=== PATIENT | male | born 1950 | race Caucasian/White ===

== ENCOUNTER → 2017-03-01 | Outpatient (CLI) | payer MEDICARE, OTHER ==
--- NOTE | 2017-03-01 21:25 | MR ---
EXAMINATION TYPE: MR iac wo/w con DATE OF EXAM: 03/01/2017 9:17 PM COMPARISON: NONE HISTORY: Left-sided hearing loss CONTRAST: 20 mL MultiHance TECHNIQUE: T1-weighted sagittal, diffusion, T2, and FLAIR axial views of the brain are submitted. The high-reso lution T2 axial and postcontrast T1 axial and coronal views of the IACs are submitted. FINDINGS: There is no pathologic enhancement of the seventh and eighth cranial nerve complex. There is no acou stic neuroma. There are changes of chronic sinusitis. Mild generalized degenerative change. Craniocervical junction maintained. Sella turcica has a normal appearance. There is a prominent cisterna magna. Mastoid air cells have a normal appearance. Nasopharynx symmetric. Intraorbital structures have a nor mal appearance. Changes of chronic sinusitis noted. There are mild nonspecific focal areas of abnormal signal the white matter likely in the basis of rem ote microvascular ischemia. IMPRESSION: 1. No cerebellopontine angle mass or acoustic schwannoma.
== END | disposition home or self-care (01) ==
LOC: RADMRIMAIN 20:02
PROVIDERS: ATTEND Otolaryngology
DX: H93.19 Tinnitus, unspecified ear (principal); H91.90 Unspecified hearing loss, unspecified ear
CPT/HCPCS: 70553; A9577

== ENCOUNTER → 2017-03-04 | Outpatient (CLI) | payer MEDICARE, OTHER ==
--- NOTE | 2017-03-04 16:05 | CT ---
EXAMINATION TYPE: CT chest wo con DATE OF EXAM: 03/04/2017 3:49 PM COMPARISON: NONE HISTORY: Pt states of chest congestion/dyspnea x1 year. CT DLP: [address] of the chest was performed with lung and mediastinal window settings submitted. The la ck of contrast limits evaluation of the vascular, mediastinal and parenchymal structures including th e upper abdomen. LUNGS: The lungs are clear and free of infiltrate. No atelectasis. No pulmonary nodule or mass is de tected. No pleural effusion. No CT evidence of interstitial lung disease. MEDIASTINUM/ISAAC: Thoracic aorta is of normal caliber with limited evaluation given lack of contrast . The heart is not enlarged. Multiple enlarged prevascular space lymph node seen measuring up to 1.7 cm short axis. Right paratracheal lymph node mass measures 3.0 cm. Subcarinal adenopathy measures 2. 5 cm. Left tracheobronchial adenopathy measures 1.6 cm. There is AP window adenopathy measuring 1.3 c m. Left hilar adenopathy estimated at 1.6 cm. Suspect right hilar adenopathy 1.1 cm. UPPER ABDOMEN: There is evidence of periportal adenopathy measuring up to 1.7 cm. Large calculus righ t kidney measures 1.1 cm. Calcified left adrenal nodule measures 1.8 cm and is nonspecific and could reflect adenoma or area of remote hemorrhage. Gastrohepatic ligament lymph node measures 1.4 cm. Smal l sliding-type hiatal hernia. Right epiphrenic lymph nodes measure up to 9 mm. OTHER: No significant other abnormality. IMPRESSION: 1. No abnormality of the lungs appreciated. 2. There is evidence of mediastinal and probable hilar adenopathy. Additional adenopathy involving th e periportal region and gastrohepatic ligament. Lymphoma not excluded.
[2017-03-05 15:31] LABS: C-ANCA <1:20 Titer (<1:20); P-ANCA <1:20 Titer (<1:20)
[2017-03-08 16:59] LABS: Histoplasma Abs by ID None Detected (None Detected); Histoplasma Abs by Mycelia, CF <1:8 (<1:8)
== END | disposition home or self-care (01) ==
LOC: LABWHC1 14:35
PROVIDERS: ATTEND Internal Medicine Critical Care Medicine
DX: R06.00 Dyspnea, unspecified (principal); R59.1 Generalized enlarged lymph nodes
CPT/HCPCS: 36415; 71250; 82164; 85652; 86038; 86235; 86255; 86431; 86698; 87385

== ENCOUNTER → 2017-03-29 | Outpatient (CLI) | payer MEDICARE, OTHER ==
[2017-03-29 09:48] LABS: CH 30.6; CHCM 34.9; HCT 43.1 % (39.0-53.0); HDW 2.66; HGB 14.6 gm/dL (13.0-17.5); MCH 29.9 pg (25.0-35.0); MCV 88.1 fL (80.0-100.0); Mean Platelet Volume 6.9; RBC 4.89 m/uL (4.30-5.90); RDW 13.5 % (11.5-15.5); WBC 5.5 k/uL (3.8-10.6)
[2017-03-29 09:58] LABS: Potassium 3.8 mmol/L (3.5-5.1)
== END | disposition home or self-care (01) ==
LOC: LABPAT 08:44
PROVIDERS: ATTEND Thoracic Surgery (Cardiothoracic Vascular Surgery)
DX: Z01.812 Encounter for preprocedural laboratory examination (principal)
CPT/HCPCS: 80051; 82947; 85027; 86850; 86900; 86901

== ENCOUNTER 2017-04-02 06:46 | Day surgery (SDC) | payer MEDICARE, OTHER ==
[2017-03-31 11:51] VITALS: BMI 32.1
[~2017-04-02 06:46] MED LIST: DEXAMETHASONE SOD PHOSPHATE 10 MG/ML 1 ML VIAL IV ONE; HYDROmorphone 1 MG/ML 1 ML SYRINGE IVP PRN; LACTATED RINGERS 1,000 ML IV SCH; MIDAZOLAM 2 MG/2 ML VIAL IV PRN; ONDANSETRON 4 MG/2 ML VIAL IVP ONE; SCOPOLAMINE 1.5MG/72HR PATCH TRANSDERM ONE; ceFAZolin 2 GM in SODIUM CHLORIDE 0.9% 100 ML IVPB ONE
[2017-04-02] MEDS ORDERED: LIDOCAINE 1% 20 ML VIAL (10MG/ML) FOR IV START INTRADERMA ONE (07:26)
[2017-04-02] MEDS ORDERED: NEOSTIGMINE 1 MG/ML 10 ML VIAL ONE (07:58)
[2017-04-02] MEDS ORDERED: LIDOCAINE 1% INJ 10MG/ML (20 ML MDV) ONE (07:58)
[2017-04-02] MEDS ORDERED: ROCURONIUM BROMIDE 10 MG/ML 10 ML VIAL IV ONE (07:58)
[2017-04-02] MEDS ORDERED: PROPOFOL 10 MG/ML 20 ML VIAL IV ONE (07:58)
[2017-04-02] MEDS ORDERED: fentaNYL (PF) 50 MCG/ML 2 ML AMP ONE (07:58)
[2017-04-02] MEDS ORDERED: GLYCOPYRROLATE 0.2 MG/ML 2 ML VIAL ONE (07:58)
[2017-04-02] MEDS ORDERED: MIDAZOLAM 2 MG/2 ML VIAL ONE (07:58)
[2017-04-02] MEDS ORDERED: ePHEDrine 50 MG/ML 1 ML AMP ONE (07:58)
[2017-04-02] MEDS ORDERED: SUCCINYLCHOLINE CHLORIDE 100 MG/5 ML SYR IV ONE (07:58)
[2017-04-02 09:18] VITALS: TEMP 97.4
--- NOTE | 2017-04-02 09:40 | P.OP ---
Date of Procedure: 04/02/17 Preoperative Diagnosis: Mediastinal lymphadenopathy Postoperative Diagnosis: Mediastinal lymphadenopathy Procedure(s) Performed: Mediastinal endoscopy with lymph node biopsy Implants: Anesthesia: SREEKANTH Surgeon: Sung Wallace Hazardous Waste Technician #1: Narciso Berg Estimated Blood Loss (ml): 25 IV fluids (ml): 1,000 Urine output (ml): 0 Pathology: other (Right paratracheal lymph node is sent for touch prep this was not felt to be consistent with lymphoma. Further portions of the specimen were sent for culture including routine AFB and fungal cultures. The majority of the specimen was sent back to pathology fresh for further evaluation.) Condition: stable Disposition: PACU Indications for Procedure: Patient is a 67-year-old gentleman with a one-year history of fatigue and cough. Was recently referred to Dr. Grider who obtained a computed tomography scan of the chest. This showed mediastinal adenopathy. Patient is referred for mediastinoscopy for diagnosis of his mediastinal adenopathy. Operative Findings: Enlarged lymph nodes were noted in the right paratracheal region. Touch prep was felt to be consistent with granulomatous disease. Description of Procedure: The patient was brought to the operating room placed supine on the operating table anesthetized and intubated. A roll was placed behind the shoulders and the neck was extended and the head supported. The anterior neck and upper chest were sterilely prepped and draped. Transverse incision was made at the base of the neck across the midline and carried down through skin and subcutaneous tissue. Dissection was continued vertically in the midline between the strap muscles. Thyroid isthmus was dissected out and ligated with 0 silk ties and divided. Blunt finger dissection was then carried along the pretracheal plane into the mediastinum. The mediastinoscope was introduced and dissection was carried down to the right paratracheal level. Enlarged dark lymph nodes were noted. Lymph nodes were dissected out and biopsy specimens obtained. A portion was sent for touch prep and the remainder was held on the back table until the touch prep returned. Once we had concluded that the most likely diagnosis was granulomatous disease, portion of the specimen was sent for culture and the remainder was sent fresh to pathology. On removing the mediastinoscope there was no evidence of bleeding. Strap muscles were reapproximated in the midline with 2-0 Vicryl. Subcutaneous tissues were closed with 3-0 Vicryl. Skin was closed with a subcuticular 4-0 Vicryl. Skin glue and a Band-Aid dressing were applied. Patient was extubated and transferred to recovery room in stable condition. Plan - Discharge Summary New Discharge Prescriptions: No Action Meclizine [Antivert] 25 mg PO BID PRN PRN Reason: dizziness amLODIPine [Norvasc] 10 mg PO DAILY Hydrochlorothiazide [Hydrodiuril] 25 mg PO DAILY Atenolol [Tenormin] 25 mg PO DAILY Aspirin 81 mg PO DAILY Tadalafil [Cialis] 5 mg PO DAILY PRN PRN Reason: erectile dysfunction Discharge Medication List Aspirin 81 mg PO DAILY 03/31/17 [History] Atenolol [Tenormin] 25 mg PO DAILY 03/31/17 [History] Hydrochlorothiazide [Hydrodiuril] 25 mg PO DAILY 03/31/17 [History] Meclizine [Antivert] 25 mg PO BID PRN 03/31/17 [History] Tadalafil [Cialis] 5 mg PO DAILY PRN 03/31/17 [History] amLODIPine [Norvasc] 10 mg PO DAILY 03/31/17 [History]
[2017-04-02 10:04] VITALS: RESP 18
[2017-04-02] MEDS ORDERED: LACTATED RINGERS 1,000 ML IV ONE (10:05)
[2017-04-02] MEDS ORDERED: ACETAMINOPHEN TAB 325 MG TAB PO ONE (10:23)
[2017-04-02 11:10] VITALS: BP 144/89; PULSE 60
--- NOTE | 2017-04-02 11:52 | XR ---
EXAMINATION TYPE: XR chest 1V portable DATE OF EXAM: 04/02/2017 COMPARISON: Chest x-ray March 04, 2017. HISTORY: Post mediastinoscopy. TECHNIQUE: Single frontal view of the chest is obtained. FINDINGS: There is chronic parenchymal change with new patchy left basilar atelectasis. No large p leural effusion or pneumothorax is seen bilaterally. The cardiac silhouette size is mildly enlarged c urrently. Right in left paratracheal soft tissue fullness corresponds to adenopathy on CT. Mass effec t on trachea is noted which is narrowed. The osseous structures are intact. IMPRESSION: No suspicious complication related to mediastinoscopy.
== END 2017-04-02 11:59 | disposition home or self-care (01) ==
LOC: OR 06:46
PROVIDERS: ATTEND Thoracic Surgery (Cardiothoracic Vascular Surgery)
DX: I88.8 Other nonspecific lymphadenitis (principal); I10 Essential (primary) hypertension; Z79.82 Long term (current) use of aspirin; Z79.899 Other long term (current) drug therapy
CPT/HCPCS: 39402; 88305; 88312; 88307; 87070; 87205; 87075; 87116; 87102; 87206; 71010; J2250; J1100; J2710; J0690; J2405; J2001; J3010; J0330; J2704; 86850; 86900; 86901

== ENCOUNTER → 2017-05-13 | Outpatient (CLI) | payer MEDICARE, OTHER ==
--- NOTE | 2017-05-14 11:03 | ECHOF ---
Referral Reason:R06.00 dyspnea MEASUREMENTS -------- HEIGHT: 188.0 cm WEIGHT: 113.4 kg BP: 133/65 RVIDd: 3.7 cm (< 3.3) IVSd: 1.3 cm (0.6 - 1.1) LVIDd: 5.2 cm (3.9 - 5.3) LVPWd: 1.3 cm (0.6 - 1.1) IVSs: 2.0 cm LVIDs: 3.3 cm LVPWs: 1.7 cm LA Diam: 3.7 cm (2.7 - 3.8) LAESV Index (A-L): 29.19 ml/m Ao Diam: 4.1 cm (2.0 - 3.7) AV Cusp: 2.6 cm (1.5 - 2.6) MV EXCURSION: 15.618 mm (> 18.000) MV EF SLOPE: 59 mm/s (70 - 150) EPSS: 0.8 cm MV E Ho: 0.71 m/s MV DecT: 312 ms MV A Ho: 0.66 m/s MV E/A Ratio: 1.08 RAP: 5.00 mmHg RVSP: 27.00 mmHg FINDINGS -------- Sinus rhythm. This was a technically good study. The left ventricular size is normal. There is mild concentric left ventricular hypertrophy. Overall left ventricular systolic function is normal with, an EF between 55 - 60 %. The right ventricle is mildly enlarged. LA is midly dilated 29-33ml/m2. The right atrium is normal in size. There is mild aortic valve sclerosis. The mitral valve is normal. Mild tricuspid regurgitation present. Right ventricular systolic pressure is normal at < 35 mmHg. Trace/mild (physiologic) pulmonic regurgitation. The aortic root is dilated measuring 4.1cm. The inferior vena cava is mildly dilated. There is no pericardial effusion. CONCLUSIONS -------- 1. Sinus rhythm. 2. Right ventricular systolic pressure is normal at < 35 mmHg. 3. Trace/mild (physiologic) pulmonic regurgitation. 4. The aortic root is dilated measuring 4.1cm. 5. The inferior vena cava is mildly dilated. 6. There is no pericardial effusion. 7. This was a technically good study. 8. There is mild concentric left ventricular hypertrophy. 9. Overall left ventricular systolic function is normal with, an EF between 55 - 60 %. 10. The right ventricle is mildly enlarged. 11. LA is midly dilated 29-33ml/m2. 12. There is mild aortic valve sclerosis. 13. The mitral valve is normal. 14. Mild tricuspid regurgitation present. SORTING LIVESTOCK WORKER: Cherise Wyatt RDCS
== END | disposition home or self-care (01) ==
LOC: RADECHMAIN 13:47
PROVIDERS: ATTEND Internal Medicine Critical Care Medicine
DX: I07.1 Rheumatic tricuspid insufficiency (principal); I35.8 Other nonrheumatic aortic valve disorders
CPT/HCPCS: 93306

== ENCOUNTER → 2017-07-22 | Outpatient (CLI) | payer MEDICARE, OTHER ==
[2017-07-22 19:02] LABS: Basophils % (A) 1 %; CH 30.5; CHCM 33.7; Eosinophils # (A) 0.3 k/uL (0-0.7); Eosinophils % (A) 4 %; HCT 45.2 % (39.0-53.0); HDW 2.59; Luc # (Auto) 0.16; Luc % (Auto) 2; Lymphocytes # (A) 2.4 k/uL (1.0-4.8); Lymphocytes % (A) 35 %; MCH 30.2 pg (25.0-35.0); MCHC 33.2 g/dL (31.0-37.0); Mean Platelet Volume 6.8; Monocytes # (A) 0.4 k/uL (0-1.0); Monocytes % (A) 6 %; Neutrophils # (A) 3.7 k/uL (1.3-7.7); Neutrophils % (A) 53 %; RBC 4.97 m/uL (4.30-5.90); RDW 13.3 % (11.5-15.5); WBC 7.1 k/uL (3.8-10.6); WBC (Perox) 7.07
[2017-07-22 19:09] LABS: ALT 42 U/L (21-72); AST 24 U/L (17-59); Acetaminophen <10.0 ug/mL; Alkaline Phosphatase 65 U/L (38-126); Anion Gap 10 mmol/L; Blood Urea Nitrogen 17 mg/dL (9-20); Calcium 9.7 mg/dL (8.4-10.2); Carbon Dioxide 29 mmol/L (22-30); Chloride 103 mmol/L (98-107); Glucose 100 mg/dL (74-99); Non-African American GFR(MDRD) >60 (>60 ml/min/1.73 sqM); Potassium 3.9 mmol/L (3.5-5.1); Sodium 142 mmol/L (137-145); Total Bilirubin 0.5 mg/dL (0.2-1.3); Total Protein 7.5 g/dL (6.3-8.2)
[2017-07-22 19:12] LABS: Rheumatoid Factor, Qnt <9 IU/mL (<12)
== END | disposition home or self-care (01) ==
LOC: LABMAIN 18:24
PROVIDERS: ATTEND Internal Medicine Infectious Disease
DX: L04.9 Acute lymphadenitis, unspecified (principal)
CPT/HCPCS: 36415; 80053; 82164; 83520; 85025; 86038; 86431

== ENCOUNTER → 2017-08-30 | Outpatient (CLI) | payer MEDICARE, OTHER ==
[2017-08-30 12:24] LABS: Blood Urea Nitrogen 22 mg/dL (9-20); Non-African American GFR(MDRD) >60 (>60 ml/min/1.73 sqM)
--- NOTE | 2017-08-30 14:06 | CT ---
EXAMINATION TYPE: CT chest w con DATE OF EXAM: 08/30/2017 COMPARISON: 03/04/2017 HISTORY: Patient has no complaints at time of study. Patient has swollen lymph nodes and recent diag nosis and treatment of histoplasmosis. CT DLP: 542.4 mGycm. Automated Exposure Control for Dose Reduction was Utilized. TECHNIQUE: CT scan of the thorax is performed following with IV Contrast, patient injected with 100 mL of Omnipaque 300. FINDINGS: LUNGS: The lungs are grossly clear, there is no concerning parenchymal mass or nodule identified. There is no pleural effusion or pneumothorax seen. The tracheobronchial tree is patent. MEDIASTINUM: Diffuse mediastinal adenopathy is again present in the prevascular, subcarinal, pretrach eal, right paratracheal, and to a lesser degree in the hilum. No axillary adenopathy is appreciated. In comparison to the prior exam of 03/04/2017 and the largest conglomeration of lymph nodes within th e right paratracheal space is similar in size measuring 3.5 x 1.9 cm. Right paratracheal adenopathy t hat previously measured 1.7 cm in short axis is similar to the prior previously measuring 1.7 cm in s hort axis and now measuring 1.6 cm in short axis. Subcarinal node previously measured 2.5 cm in short axis and again measures 2.5 cm in short axis. No pericardial effusion is seen. OTHER: Hepatic cyst is seen within segment 2 of the liver measuring 1.3 cm. There is a small hiatal h ernia present. 1.2 x 0.9 cm calculus is present with in a minor calyx of the right superior pole. Lef t adrenal gland nodule containing a central calcification is similar in size to the prior exam measur ing 1.9 cm and previously measuring 1.8 cm. This has peripheral areas of low-density and may represen t sequela of granulomatous disease or adenoma. Within the abdomen there are prominent lymph nodes in the celiac axis region measuring 8 mm and portal caval region measuring up to 1.5 cm, similar to the prior exam. IMPRESSION: 1. Similar mediastinal and upper abdominal adenopathy in comparison the prior exam of 03/04/2017. This may be sequela of granulomatous disease in a patient with a provided history of histoplasmosis, johnston jayce lymphoma remains in the differential and surveillances recommended. No new pulmonary nodules, mas ses or focal consolidation. 2. Redemonstration of nonobstructing right upper pole renal calculus, partially calcified left adrena l gland nodule that may represent sequela of prior hemorrhage or adenoma, and small hiatal hernia.
== END | disposition home or self-care (01) ==
LOC: RADCTMAIN 11:42
PROVIDERS: ATTEND Internal Medicine Critical Care Medicine
DX: R59.0 Localized enlarged lymph nodes (principal)
CPT/HCPCS: 82565; 84520; 71260; 36415; Q9967

== ENCOUNTER → 2018-03-07 | Outpatient (CLI) | payer MEDICARE, OTHER ==
[2018-03-07 11:26] LABS: Blood Urea Nitrogen 19 mg/dL (9-20)
--- NOTE | 2018-03-07 12:03 | CT ---
EXAMINATION TYPE: CT chest w con DATE OF EXAM: 03/07/2018 COMPARISON: Chest CT August 30, 2017 and older study March 04, 2017. HISTORY: Mediastinal lymphadenopathy, prior abnormal CT. CT DLP: 543.10 mGycm Automated exposure control for dose reduction was used. CONTRAST: CT scan of the chest is performed with IV Contrast, patient injected with 100 ml mL of Isovue 300. FINDINGS: LUNGS: The lungs are predominantly clear, there is no concerning parenchymal mass or nodule identifie d. There is mild bibasilar linear scarring and/or atelectasis redemonstrated. There is no pleural e ffusion or pneumothorax seen. The tracheobronchial tree is patent. MEDIASTINUM: There are persistent enlarged thoracic lymph nodes including anterior superior mediastin al, paratracheal, prevascular, AP window, subcarinal, and bilateral hilar lymph nodes. For reference subcarinal lymph node measures 3.8 x 2.2 cm axial image 29 significantly changed from last 2 CTs. For reference right paratracheal lymph node measures 2.0 x 1.2 cm on axial image 22 and not significantl y changed from last 2 CTs. No cardiomegaly or pericardial effusion is seen. OTHER: A posterior 1.0 cm calcification upper pole right kidney axial image 70 could reflect dystroph ic calcification or larger renal calculus not significantly changed from prior studies. No axillary a denopathy is noted. There is persistent nodular thickening to left adrenal gland axial image 1661 wit h central calcification. There are persistent prominent but predominantly subcentimeter upper abdomin al lymph nodes, largest measure lymph node viktor hepatis level measures 1.9 x 1.3 cm axial image 65 n ot significantly changed from March 04, 2017 study. IMPRESSION: Stable nonspecific thoracic and upper abdominal adenopathy. No new suspicious mass or ad enopathy is seen.
== END | disposition home or self-care (01) ==
LOC: RADCTMAIN 10:49
PROVIDERS: ATTEND Internal Medicine Critical Care Medicine
DX: R59.0 Localized enlarged lymph nodes (principal); R59.1 Generalized enlarged lymph nodes
CPT/HCPCS: 82565; 84520; 71260; 36415; Q9967

== ENCOUNTER → 2018-12-09 | Outpatient (CLI) | payer MEDICARE, OTHER ==
[2018-12-09 11:06] LABS: Blood Urea Nitrogen 19 mg/dL (9-20)
--- NOTE | 2018-12-09 15:59 | CT ---
EXAMINATION TYPE: CT chest w con DATE OF EXAM: 12/09/2018 COMPARISON: 03/07/2018 HISTORY: Loacalized enlarged lymph nodes CT DLP: 732.2 mGycm, Automated exposure control for dose reduction was used. CONTRAST: Performed injected with 100 mL of Isovue 300. TECHNIQUE: Axial images were obtained at 5 mm thick sections. Reconstructed images are reviewed on [employer] computer in the coronal plane. FINDINGS: Portion of the thyroid visualized is normal. No suspicious lung nodules or focal infiltrates are present. There multiple enlarged lymph nodes within the mediastinum. The subcarinal lymph node measures 2.4 c m transverse which is slightly more prominent than the 2.2 cm previously measured. Some smaller right hilar adenopathy is present. There is an enlarged lymph nodes in the pretracheal space and aortic ar ch level as well as within the superior mediastinum. These appear stable. Suspicious axillary adenopa thy is not evident. Etiologies such as Castleman's disease and lymphoma should be considered. If this has not been worked up, consider PET CT. The ascending aorta diameter at the level of the main pulmonary artery is 4.2 cm. The main pulmonary artery diameter at the bifurcation is 2.[address] sections are obtained through the upper abdomen. In the portal region there is a 1.5 cm ly mph node which is slightly larger than 1.3 cm previous measurement. Additional adenopathy in the flor on appears similar smaller. No suspicious retrocaval caval or periaortic adenopathy is evident there are scattered small lymph nodes in this region. The left adrenal gland is enlarged and has some calcification present. This is stable. Right adrenal gland is normal. There is a 1.6 cm cyst in the posterior left superior liver. Small hiatal hernia may be present. IMPRESSIONS: 1. Enlarged mediastinal adenopathy. These are stable to minimally enlarged from comparison as discuss ed above. There is enlarged adenopathy within the superior abdomen which may be slightly more promine nt than previous. 2. Stable enlarged lobular left adrenal gland.
== END ==
LOC: RADCTMAIN 10:25
PROVIDERS: ATTEND Internal Medicine Critical Care Medicine
DX: R59.0 Localized enlarged lymph nodes (principal)
CPT/HCPCS: 82565; 84520; 71260; 36415; Q9967

== ENCOUNTER → 2020-01-02 | Outpatient (CLI) | payer MEDICARE, OTHER ==
[2020-01-02 13:06] LABS: African American GFR (CKD) >90 (>60 ml/min/1.73 sqM); Blood Urea Nitrogen 18 mg/dL (9-20); Non-African American GFR(CKD) 80 (>60 ml/min/1.73 sqM)
--- NOTE | 2020-01-02 14:08 | CT ---
EXAMINATION TYPE: CT chest w con DATE OF EXAM: 01/02/2020 COMPARISON: 12/09/2018 HISTORY: Follow up for mediastinal enlarged lymph nodes. CT DLP: 583.6 mGycm. Automated Exposure Control for Dose Reduction was Utilized. TECHNIQUE: CT scan of the thorax is performed following with IV Contrast, patient injected with 100m l mL of Isovue 300. FINDINGS: LUNGS: Punctate 1 to 2 mm pulmonary nodule in the posterior right upper lobe is marked on series 4 im age 21 and seen dating back to 03/04/2017, benign. No new suspicious dominant nodules or masses. Pleu ral parenchymal scarring in the right middle lobe. There is no pleural effusion or pneumothorax seen. The tracheobronchial tree is patent. MEDIASTINUM: There is decrease in the previously seen mediastinal adenopathy. A pretracheal lymph nod e previously measured 1.7 cm in short axis on series 3 image 19 and now measures 1.2 cm. Right paratr acheal lymph node on image 25 previously measured 1.6 cm and now measures 1.1 cm. Prevascular lymph n ode previously measured 1.4 cm and now measures 0.8 cm. Subcarinal lymph node previously measured 2.4 cm now measures 1.9 cm. Multiple other prominent and enlarged mediastinal lymph nodes appear smaller from the prior. No pericardial effusion is seen. Ascending thoracic aorta measures approximately 4.1 cm, mildly enlarged. Main pulmonary arteries within normal limits. Few coronary artery calcificat ions. No pericardial effusion. Aortic root is also mildly dilated measuring 4.1 cm. OTHER: Simple fluid attenuated left hepatic cyst measures 1.7 cm. Mild degree hepatic steatosis is se en limiting evaluation for hepatic masses and the visualized portions of the liver. Additional hepati c cyst is seen on the last image. 1.1 cm dystrophic calcification of the right superior pole the kidn ey is only partially imaged. Left adrenal gland nodule containing calcifications measures approximate ly 2.3 x 2.3 cm and has enlarged from the most remote study of 03/04/2017. Periportal lymph node has d ecreased from that study where this measured 1.7 cm and now measures 0.9 cm. No splenomegaly. IMPRESSION: 1. Decrease in size of the mediastinal lymph nodes and periportal lymph node likely on the basis of t his patient's history of histoplasmosis although lymphoma does remain a consideration given the multi ple enlarged and prominent lymph nodes. 2. Indeterminate left adrenal gland nodule has slightly increased in size from the prior exams and is therefore suspicious. More definitive characterization with enhanced MR abdomen or PET/CT could be c onsidered.
== END | disposition home or self-care (01) ==
LOC: RADCTMAIN 12:19
PROVIDERS: ATTEND Internal Medicine Critical Care Medicine
DX: R59.0 Localized enlarged lymph nodes (principal)
CPT/HCPCS: 82565; 84520; 71260; 36415; Q9967

== ENCOUNTER → 2020-02-21 | Outpatient (CLI) | payer MEDICARE, OTHER ==
[2020-02-21 11:09] LABS: Basophils % (A) 0 %; Eosinophils # (A) 0.4 k/uL (0-0.7); Eosinophils % (A) 5 %; HCT 44.6 % (39.0-53.0); HGB 15.1 gm/dL (13.0-17.5); Lymphocytes # (A) 1.1 k/uL (1.0-4.8); Lymphocytes % (A) 15 %; MCH 31.1 pg (25.0-35.0); MCHC 33.9 g/dL (31.0-37.0); MCV 91.6 fL (80.0-100.0); Mean Platelet Volume 7.4; Monocytes # (A) 0.3 k/uL (0-1.0); Monocytes % (A) 4 %; Neutrophils # (A) 5.6 k/uL (1.3-7.7); Neutrophils % (A) 75 %; Platelet Count 283 k/uL (150-450); RBC 4.87 m/uL (4.30-5.90); RDW 12.9 % (11.5-15.5); WBC 7.5 k/uL (3.8-10.6)
[2020-02-21 11:22] LABS: Total Eosinophil Count 352 #EOS/uL (150-300)
[2020-02-21 15:56] LABS: African American GFR (CKD) 101.4 (60.0-200.0); Albumin 4.2 g/dL (3.80-4.90); Albumin/Globulin Ratio 1.91 (1.60-3.17); Anion Gap 9.2 mmol/L (4.00-12.00); BUN/Creat Ratio 16.67 Ratio (12.00-20.00); Calcium 9.6 mg/dL (8.7-10.3); Carbon Dioxide 30.8 mmol/L (21.6-31.8); Globulin 2.2 g/dL (1.6-3.3); Non-African American GFR(CKD) 87.5 (60.0-200.0); Potassium 3.7 mmol/L (3.5-5.5); Total Bilirubin 0.5 mg/dL (0.2-1.2); Total Protein 6.4 g/dL (6.2-8.2)
[2020-02-21 16:47] LABS: Cat Epith & Dander IgE <0.10 kU/L; Dermato. farinae IgE <0.10 kU/L
[2020-02-21 16:48] LABS: Cockroach IgE <0.10 kU/L; Dog Dander IgE <0.10 kU/L
[2020-02-21 16:49] LABS: Alternaria alternata IgE <0.10 kU/L; Aspergillus fumagatus IgE <0.10 kU/L; Birch IgE <0.10 kU/L; Cladosporian herbarum IgE <0.10 kU/L; Maple (Box Elder) IgE <0.10 kU/L
[2020-02-21 16:50] LABS: Elm IgE <0.10 kU/L; Oak IgE <0.10 kU/L
[2020-02-21 17:25] LABS: Ragweed,Common IgE <0.10 kU/L
[2020-02-21 17:27] LABS: Red Top (Bentgrass) IgE <0.10 kU/L
== END | disposition home or self-care (01) ==
LOC: LABWHC1 09:54
PROVIDERS: ATTEND Internal Medicine Critical Care Medicine
DX: J45.909 Unspecified asthma, uncomplicated (principal)
CPT/HCPCS: 36415; 80053; 82785; 85008; 85025; 86003

== ENCOUNTER 2020-07-18 11:12 | Inpatient (IN) | payer MEDICARE, OTHER ==
[2020-07-18] MEDS ORDERED: methylPREDNISolone SOD SUCCI 125 MG/2 ML VIAL IV STA (11:33)
[2020-07-18] MEDS ORDERED: IPRATROPIUM-ALBUTEROL 3 ML NEB INHALATION STA (11:52)
[2020-07-18 12:00] LABS: Basophils # (A) 0.1 k/uL (0-0.2); Basophils % (A) 1 %; Eosinophils # (A) 1.9 k/uL (0-0.7); Eosinophils % (A) 18 %; HGB 15.3 gm/dL (13.0-17.5); Lymphocytes # (A) 1.7 k/uL (1.0-4.8); Lymphocytes % (A) 17 %; MCH 29.3 pg (25.0-35.0); MCHC 33.3 g/dL (31.0-37.0); Mean Platelet Volume 7.2; Monocytes # (A) 0.5 k/uL (0-1.0); Monocytes % (A) 5 %; Neutrophils # (A) 5.9 k/uL (1.3-7.7); Neutrophils % (A) 58 %; Platelet Count 274 k/uL (150-450); RBC 5.23 m/uL (4.30-5.90); RDW 12.7 % (11.5-15.5); WBC 10.1 k/uL (3.8-10.6)
[2020-07-18 12:10] LABS: Prothrombin Time 10.1 sec (9.0-12.0)
[2020-07-18 12:11] LABS: Albumin 4.5 g/dL (3.5-5.0); Calcium 9.9 mg/dL (8.4-10.2); Partial Thromboplastin Time 23.5 sec (22.0-30.0); Potassium 4.1 mmol/L (3.5-5.1); Total Bilirubin 1.2 mg/dL (0.2-1.3); Total Protein 7.7 g/dL (6.3-8.2)
[2020-07-18] MEDS ORDERED: hydrALAZINE HCL 20 MG/ML 1 ML VIAL IVP STA (12:37)
--- NOTE | 2020-07-18 12:41 | XR ---
EXAMINATION TYPE: XR chest 2V DATE OF EXAM: 07/18/2020 CLINICAL HISTORY: Difficulty breathing. History of asthma. TECHNIQUE: Frontal and lateral views of the chest are obtained. COMPARISON: Chest radiograph 02/20/2020. FINDINGS: Cardiomegaly. The Pulmonary vasculature is normal. There is no focal air space opacity, pl eural effusion, or pneumothorax seen. The osseous structures are intact. IMPRESSION: Cardiomegaly.
[2020-07-18] MEDS ORDERED: IPRATROPIUM-ALBUTEROL 3 ML NEB INHALATION PRN (13:13)
--- NOTE | 2020-07-18 13:16 | ED ---
SOB HPI - General Chief Complaint: Shortness of Breath Stated Complaint: SOB Time Seen by Provider: 07/18/20 11:23 Source: patient Mode of arrival: wheelchair Limitations: no limitations - History of Present Illness Initial Comments: 70-year-old male presenting today for chief complaint of shortness of breath. Patient states his shortness breath for 3 weeks. 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 Patient states his symptoms are identical. He denies any fever cough upper respiratory symptoms. He denies any abdominal pain chest pressure shorts breath jaw or arm pain. Patient states that he has been wheezing and using his rescue inhaler multiple times a day he states that he is taken to DuoNeb nebulized treatments prior to coming to the emergency department. Patient st ates he is not currently on oral steroids. Patient states he is not currently on antibiotics he denies a previous intubations or ICU admissions for this complaint. Patient admits to bilateral leg swelling he states his very much so improved from previously he states he was worked up a few months ago for heart failure and was told that he does not have it but does have chronic on and off lower extremity edema. patient denies difficulty lying fllat. Patient denies hemoptysis history of DVT or plantar embolism, but denies recent surgical procedures or immobilization denies unilateral leg or calf pain. Patient has no additional complaints. - Related Data Home Medications Medication Instructions Recorded Confirmed Albuterol Inhaler [Ventolin Hfa 2 puff INHALATION RT-Q4H PRN 07/18/20 07/18/20 Inhaler] Albuterol Nebulized [Ventolin 2.5 mg INHALATION RT-QID PRN 07/18/20 07/18/20 Nebulized] Fluticasone Nasal [place] [Flonase 2 spr EA NOSTRIL DAILY 07/18/20 07/18/20 Nasal [place]] Ipratropium Nebulized [Atrovent 0.5 mg INHALATION RT-QID PRN 07/18/20 07/18/20 Nebulized 0.2 MG/ML] Losartan Potassium 100 mg PO DAILY 07/18/20 07/18/20 Montelukast [Singulair] 10 mg PO HS 07/18/20 07/18/20 Mucus Relief 1 tab PO Q4H PRN 09/24/20 09/24/20 Triamterene-Hctz 37.5-25Mg 1 cap PO DAILY 07/18/20 07/18/20 [Dyazide 37.5-25 Capsule] Allergies Allergy/AdvReac Type Severity Reaction Status Date / Time Beta-Blockers AdvReac Diarrhea Verified 07/18/20 12:28 (Beta-Adrenergic Bloc losartan AdvReac Swelling Verified 07/18/20 12:28 Review of Systems ROS Statement: Those systems with pertinent positive or pertinent negative responses have been documented in the HPI. ROS Other: All systems not noted in ROS Statement are negative. Past Medical History Past Medical History: Asthma, Hypertension History of Any Multi-Drug Resistant Organisms: None Reported Past Surgical History: Orthopedic Surgery Additional Past Surgical History / Comment(s): lung biopsy Past Psychological History: No Psychological Hx Reported Smoking Status: Former smoker Past Alcohol Use History: Rare Past Drug Use History: None Reported General Exam - General Exam Comments Initial Comments: General: The patient is awake and alert, in no distress Eye: +3 mm pupils are equal, round and reactive to light, extra-ocular movements are intact. No nystagmus. There is normal conjunctiva bilaterally. No signs of icterus. Ears, nose, mouth and throat: There are moist mucous membranes and no oral lesions. Neck: The neck is supple, there is no tenderness or JVD. Cardiovascular: There is a regular rate and rhythm. No murmur, rub or gallop is appreciated. Respiratory: Auditory wheeze prior to espirations are mildly-labored, breath s ounds are equal. No stridor, rales, or rhonchi. Gastrointestinal: Soft, non-distended, non-tender abdomen without masses or organomegaly noted. There is no rebound or guarding present. Musculoskeletal: Normal ROM, no tenderness. Strength 5/5. Sensation intact. Radial and DP pulses equal bilaterally 2+. Neurological: A&O x 3. CN II-XII intact grossly, There are no obvious motor or sensory deficits. Coordination appears grossly intact. Speech is normal. Skin: Skin is warm and dry and no rashes or lesions are noted. LE edema b/l mild. Psychiatric: Cooperative, appropriate mood & affect, normal judgment. Limitations: no limitations Course Vital Signs 07/18/20 07/18/20 07/18/20 11:13 11:44 12:29 Temperature 99.2 F Pulse Rate 83 81 77 Respiratory 18 18 Rate Blood Pressure 164/89 175/103 O2 Sat by Pulse 96 96 Oximetry 07/18/20 12:45 Temperature Pulse Rate 82 Respiratory Rate Blood Pressure O2 Sat by Pulse Oximetry Medical Decision Making - Medical Decision Making 70-year-old male who appears short of breath presenting to the ER for wheezing. Patient states he has had SOB, wheezing x 3 weeks. Patient states he expresses before and was seen by pulmonology and extensive outpatient testing was diagnosed with ALLERGY induced asthma. Patient performed 2 duoneb treatments prior to arrival, was given additional in ER. Roscoe jittery will hold for now. Patient given solumedrol. He appears less SOB. Patient wheeze no longer audible without stethoscope. Patient agreeable to admission. Dr. Muro agreeable to care plan and admission. Ventricular rate 70 bpm, NV interval 150 ms correct to our is 160 seconds, QT/QTC 402/458ms. - Lab Data Result diagrams: 07/18/20 11:49 07/18/20 11:49 Lab Results 07/18/20 07/18/20 07/18/20 Range/Units 11:49 11:49 11:49 WBC 10.1 (3.8-10.6) k/uL RBC 5.23 (4.30-5.90) m/uL Hgb 15.3 (13.0-17.5) gm/dL Hct 46.0 (39.0-53.0) % MCV 88.0 (80.0-100.0) fL MCH 29.3 (25.0-35.0) pg MCHC 33.3 (31.0-37.0) g/dL RDW 12.7 (11.5-15.5) % Plt Count 274 (150-450) k/uL Neutrophils % 58 % Lymphocytes % 17 % Monocytes % 5 % Eosinophils % 18 % Basophils % 1 % Neutrophils # 5.9 (1.3-7.7) k/uL Lymphocytes # 1.7 (1.0-4.8) k/uL Monocytes # 0.5 (0-1.0) k/uL Eosinophils # 1.9 H (0-0.7) k/uL Basophils # 0.1 (0-0.2) k/uL PT 10.1 (9.0-12.0) sec INR 1.0 (<1.2) APTT 23.5 (22.0-30.0) sec Sodium 139 (137-145) mmol/L Potassium 4.1 (3.5-5.1) mmol/L Chloride 103 (98-107) mmol/L Carbon Dioxide 29 (22-30) mmol/L Anion Gap 7 mmol/L BUN 17 (9-20) mg/dL Creatinine 1.01 (0.66-1.25) mg/dL Est GFR (CKD-EPI)AfAm 88 (>60 ml/min/1.73 sqM) Est GFR (CKD-EPI)NonAf 76 (>60 ml/min/1.73 sqM) Glucose 106 H (74-99) mg/dL Plasma Lactic Acid Johnson (0.7-2.0) mmol/L Calcium 9.9 (8.4-10.2) mg/dL Total Bilirubin 1.2 (0.2-1.3) mg/dL AST 37 (17-59) U/L ALT 28 (4-49) U/L Alkaline Phosphatase 73 (38-126) U/L Troponin I (0.000-0.034) ng/mL NT-Pro-B Natriuret Pep pg/mL Total Protein 7.7 (6.3-8.2) g/dL Albumin 4.5 (3.5-5.0) g/dL 07/18/20 07/18/20 07/18/20 Range/Units 11:49 11:49 11:49 WBC (3.8-10.6) k/uL RBC (4.30-5.90) m/uL Hgb (13.0-17.5) gm/dL Hct (39.0-53.0) % MCV (80.0-100.0) fL MCH (25.0-35.0) pg MCHC (31.0-37.0) g/dL RDW (11.5-15.5) % Plt Count (150-450) k/uL Neutrophils % % Lymphocytes % % Monocytes % % Eosinophils % % Basophils % % Neutrophils # (1.3-7.7) k/uL Lymphocytes # (1.0-4.8) k/uL Monocytes # (0-1.0) k/uL Eosinophils # (0-0.7) k/uL Basophils # (0-0.2) k/uL PT (9.0-12.0) sec INR (<1.2) APTT (22.0-30.0) sec Sodium (137-145) mmol/L Potassium (3.5-5.1) mmol/L Chloride (98-107) mmol/L Carbon Dioxide (22-30) mmol/L Anion Gap mmol/L BUN (9-20) mg/dL Creatinine (0.66-1.25) mg/dL Est GFR (CKD-EPI)AfAm (>60 ml/min/1.73 sqM) Est GFR (CKD-EPI)NonAf (>60 ml/min/1.73 sqM) Glucose (74-99) mg/dL Plasma Lactic Acid Johnson 1.1 (0.7-2.0) mmol/L Calcium (8.4-10.2) mg/dL Total Bilirubin (0.2-1.3) mg/dL AST (17-59) U/L ALT (4-49) U/L Alkaline Phosphatase (38-126) U/L Troponin I <0.012 (0.000-0.034) ng/mL NT-Pro-B Natriuret Pep 65 pg/mL Total Protein (6.3-8.2) g/dL Albumin (3.5-5.0) g/dL Disposition Clinical Impression: Dyspnea, Asthma exacerbation Disposition: ADMITTED IP TO THIS [facility] Condition: Stable Is patient prescribed a controlled substance at d/c from ED?: No Referrals: Ford Willis MD [Primary Care Provider] - 1-2 days Time of Disposition: 13:15 Decision to Admit Reason: Admit from EC Decision Date: 07/18/20 Decision Time: 13:16
[2020-07-18] MEDS ORDERED: RX INFO: IV CONTRAST WAS GIVEN 1 EACH MISC MISCELLANE PRN (15:07)
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
[2020-07-18] MEDS: methylPREDNISolone SOD SUCCI 125 MG/2 ML VIAL IV SCH ×3 (16:22→23:01)
[2020-07-18] MEDS: PANTOPRAZOLE 40 MG TABLET PO SCH (16:23)
[2020-07-18] MEDS: LORATADINE 10 MG TAB PO SCH (16:23)
[2020-07-18] MEDS: IPRATROPIUM-ALBUTEROL 3 ML NEB INHALATION SCH ×2 (16:36→20:35)
--- NOTE | 2020-07-18 17:03 | CT ---
EXAMINATION TYPE: CT chest w con DATE OF EXAM: 07/18/2020 COMPARISON: CT chest 01/02/2020 HISTORY: Mediastinal adenopathy, follow up CT. CT DLP: 552.5 mGycm Automated exposure control for dose reduction was used. CONTRAST: CT scan of the chest is performed with IV Contrast, patient injected with 100 mL of Isovue M300. FINDINGS: LUNGS: Mild bibasilar atelectasis. No concerning parenchymal mass or nodule identified. No pleural ef fusion. No pneumothorax. The tracheobronchial tree is patent. MEDIASTINUM/SOFT TISSUES: No axillary or hilar lymphadenopathy. Redemonstrated mediastinal lymphadeno see is unchanged versus 01/02/2020 and 12/09/2018, for example conglomerative lymph node right pretra cheal measure up to 1.6 x 3.2 cm (201:19). Left prevascular mediastinal lymph node measures 1.3 x 1.7 cm (201:23), unchanged from 01/02/2020, and mildly decreased versus 12/09/2018 when it measured 1.3 x 2.1 cm. The subcarinal lymph node measures up to 1.8 x 2.6 cm (201:33), unchanged from 12/24/2019, and mildly decreased from 12/09/2018 when it measured 2.4 x 3.2 cm. Cardiac size is normal. No pericardial effusion. Ascending thoracic aortic ectasia measures 4.1 cm. UPPER ABDOMEN: Left simple hepatic cyst. Redemonstrated left adrenal gland nodule measuring 2.5 cm wi th internal coarse calcification. Splenic size normal. OSSEOUS: No acute osseous abnormality. IMPRESSION: 1. Mediastinal lymphadenopathy is unchanged versus 01/02/2020, and mildly decreased versus 12/09/2018. 2. Indeterminate left adrenal gland lobulated nodule with calcification redemonstrated. Consider furt her characterization with MRI.
[2020-07-18] MEDS: MONTELUKAST 10 MG TAB PO SCH (19:56)
[2020-07-18] MEDS: FORMOTEROL FUMARATE 20 MCG/2 ML NEBU INHALATION SCH (20:35)
[2020-07-18] MEDS: BUDESONIDE 1 MG/2 ML NEBU INHALATION SCH (20:35)
[2020-07-18] MEDS ORDERED: FLUCONAZOLE 100 MG TAB PO ONE (22:28)
[2020-07-18] MEDS ORDERED: LISINOPRIL-HCTZ 20-12.5 MG 1 EACH TAB PO SCH (22:30)
[2020-07-18] MEDS: ENOXAPARIN 40 MG/0.4 ML SYRINGE SQ SCH (23:02)
[2020-07-18] MEDS: PRAZOSIN 1 MG CAP PO SCH (23:02)
--- NOTE | 2020-07-18 23:35 | P.HPIM ---
History of Present Illness H&P Date: 07/18/20 Chief Complaint: short of breath History of presenting complaint: This is a pleasant 70-year-old patient of Dr. Willis. Patient also follows with Dr. Grider from pulmonary. Patient presents with 1 week of increasing chest tightness and wheezing shortness of breath slight cough. No sputum production. Some rawness in the throat. Denies any fever and chills. Appetite is fair. With diet and rundown. 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 Also had some lower extremity swelling secondary to amlodipine, that was discontinued. Also been diagnosed with ALLERGIC asthma. Was taken off beta blockers by Dr. Signh for his bronchospasm. Month ago he did complain of red painful spots on lower extremity. Review of systems: GEN.: Tired EYES: None HEENT: None NECK: None RESPIRATORY: As above CARDIOVASCULAR: None GASTROINTESTINAL: None GENITOURINARY: None MUSCULOSKELETAL: None LYMPHATICS: None HEMATOLOGICAL: None PSYCHIATRY: None NEUROLOGICAL: None. Past medical history to include: Asthma, hypertension, obstructive sleep apnea does not use CPAP left ear admin's disease Social history: Lives alone. Has his own [employer] business. Smoked for 10 years stopped in 1981. Alcohol rarely. Physical examination: VITAL SIGNS: 98.6, 97, 18, 1 73 x 91, 93% on 2 L GENERAL: BMI 32.7, sitting up in a chair, wheezing, coughing. EYES: Pupils equal. Conjunctiva normal. HEENT: [External appearance of nose and ears normal, oral cavity white spots in the pharynx. NECK: JVD not raised; masses not palpable. HEART: First and second heart sounds are normal; no edema. LUNGS: Respiratory rate increased, decreased breath sounds prolonged expiration and wheezing. ABDOMEN: Soft, nontender, liver spleen not palpable, no masses palpable. PSYCH: Alert and oriented x3; mood and affect normal. NEUROLOGICAL: Cranial nerves grossly intact; no facial asymmetry, power and sensation grossly intact. LYMPHATICS: No lymph nodes palpable in the axilla and neck INVESTIGATIONS, reviewed in the clinical context: White count 10.1 hemoglobin 15.3 platelets 274 potassium 4.1 creatinine 1.01 Troponin I less than 0.012 EKG tracing personally reviewed by me-normal sinus rhythm Chest x-ray film personally reviewed by me-lung tee clear Computed tomography scan of the chest with contrast-mediastinal lymphadenopathy unchanged from earlier ascending thoracic aorta intact ACL 4.1 cm left anginal plan no new 2.5 cm Assessment: -Acute obstructive asthma exacerbation -Obesity BMI 32.7 -Oropharyngeal candidiasis from use of steroid inhaler -Essential hypertension, uncontrolled -Obstructive sleep apnea patient unable to use CPAP Plan: He started on DuoNeb, inhaled and IV Solu-Medrol. We'll start the patient on Diflucan and Lovenox for DVT prophylaxis. Home medications resumed. Add prazosin for blood pressure control. Patient is only on losartan. Care was discussed with the patient. Questions answered. Pulmonary consulted.. 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, bronchitis, pt states per cat scan he had a "spot" on adrenal gland and was to have MRI but d/t covid was never able to get this done, [place]NER pt has Cpap but states he does not sleep well when using so uses infrequently, past lower extremity edema thought d/t norvasc-dc'd and went away, L ear meniere's disease, past vertigo History of Any Multi-Drug Resistant Organisms: None Reported Past Surgical History: Orthopedic Surgery Additional Past Surgical History / Comment(s): lung biopsy Past Anesthesia/Blood Transfusion Reactions: No Reported Reaction Past Psychological History: No Psychological Hx Reported Smoking Status: Former smoker Past Alcohol Use History: Rare Past Drug Use History: None Reported - Past Family History Mother Additional Family Medical History / Comment(s): Mother had a type of brain shunt d/t fluid. Father Family Medical History: Dementia Medications and Allergies Home Medications Medication Instructions Recorded Confirmed Type Albuterol Inhaler [Ventolin Hfa 2 puff INHALATION RT-Q4H PRN 07/18/20 07/18/20 History Inhaler] Albuterol Nebulized [Ventolin 2.5 mg INHALATION RT-QID PRN 07/18/20 07/18/20 History Nebulized] Fluticasone Nasal Mastic [Flonase 2 spr EA NOSTRIL DAILY 07/18/20 07/18/20 History Nasal Mastic] Ipratropium Nebulized [Atrovent 0.5 mg INHALATION RT-QID PRN 09/24/20 09/24/20 History Nebulized 0.2 MG/ML] Losartan Potassium 100 mg PO DAILY 07/18/20 07/18/20 History Montelukast [Singulair] 10 mg PO HS 07/18/20 07/18/20 History Mucus Relief 1 tab PO Q4H PRN 07/18/20 07/18/20 History Triamterene-Hctz 37.5-25Mg 1 cap PO DAILY 07/18/20 07/18/20 History [Dyazide 37.5-25 Capsule] Allergies Allergy/AdvReac Type Severity Reaction Status Date / Time Beta-Blockers AdvReac Diarrhea Verified 07/18/20 12:28 (Beta-Adrenergic Bloc losartan AdvReac Swelling Verified 07/18/20 12:28 Physical Exam Vitals: Vital Signs Temp Pulse Pulse Resp BP BP BP 07/18/20 20:58 98 07/18/20 20:50 96 07/18/20 20:49 96 07/18/20 20:36 88 07/18/20 20:23 98.6 F 97 18 173/91 07/18/20 16:48 80 07/18/20 16:37 76 07/18/20 16:00 79 20 07/18/20 15:00 98.8 F 79 20 174/94 07/18/20 13:36 99.2 F 88 18 159/96 07/18/20 13:19 88 18 159/96 07/18/20 12:45 82 07/18/20 12:29 77 07/18/20 11:44 81 18 175/103 07/18/20 11:13 99.2 F 83 18 164/89 Pulse Ox 07/18/20 20:58 07/18/20 20:50 07/18/20 20:49 07/18/20 20:36 95 07/18/20 20:23 93 L 07/18/20 16:48 07/18/20 16:37 07/18/20 16:00 07/18/20 15:00 93 L 07/18/20 13:36 93 L 07/18/20 13:19 93 L 07/18/20 12:45 07/18/20 12:29 07/18/20 11:44 96 07/18/20 11:13 96 Intake and Output 09/24/20 09/24/20 09/25/20 14:59 22:59 06:59 Other: # Voids 2 2 Weight 115.666 kg Results CBC & Chem 7: 07/18/20 11:49 07/18/20 11:49 Labs: Abnormal Lab Results - Last 24 Hours (Table) 07/18/20 07/18/20 Range/Units 11:49 11:49 Eosinophils # 1.9 H (0-0.7) k/uL Glucose 106 H (74-99) mg/dL Thrombosis Risk Factor Assmnt - Choose All That Apply Any of the Below Risk Factors Present?: Yes Each Factor Represents 1 point: Obesity (BMI >25), Serious lung disease incl. pneumonia (< 1month) Other Risk Factors: Yes Each Risk Factor Represents 2 Points: Age 61-74 years Other congenital or acquired thrombophilia - If yes, enter type in comment: No Thrombosis Risk Factor Assessment Total Risk Factor Score: 4 Thrombosis Risk Factor Assessment Level: Moderate Risk
[2020-07-19] MEDS: methylPREDNISolone SOD SUCCI 125 MG/2 ML VIAL IV SCH ×2 (06:09→12:30)
[2020-07-19 07:03] LABS: Glucose,Whole Blood 143 mg/dL (75-99)
[2020-07-19] MEDS: ACETAMINOPHEN TAB 325 MG TAB PO PRN ×2 (07:37→14:37)
[2020-07-19] MEDS: BUDESONIDE 1 MG/2 ML NEBU INHALATION SCH (07:44)
[2020-07-19] MEDS: FORMOTEROL FUMARATE 20 MCG/2 ML NEBU INHALATION SCH (07:44)
[2020-07-19] MEDS: IPRATROPIUM-ALBUTEROL 3 ML NEB INHALATION SCH ×4 (07:44→19:32)
[2020-07-19] MEDS: ENOXAPARIN 40 MG/0.4 ML SYRINGE SQ SCH (08:03)
[2020-07-19] MEDS: PANTOPRAZOLE 40 MG TABLET PO SCH (08:04)
[2020-07-19] MEDS: LOSARTAN 50 MG TAB PO SCH (08:05)
[2020-07-19] MEDS: PRAZOSIN 1 MG CAP PO SCH ×3 (08:05→20:36)
[2020-07-19] MEDS: FLUCONAZOLE 100 MG TAB PO SCH (08:06)
[2020-07-19] MEDS: LORATADINE 10 MG TAB PO SCH (08:06)
[2020-07-19] MEDS ORDERED: predniSONE 20 MG TAB PO SCH (09:00)
[2020-07-19 11:46] LABS: Glucose,Whole Blood 176 mg/dL (75-99)
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
[2020-07-19] MEDS: methylPREDNISolone SOD SUCCI 40 MG/ML 1 ML VIAL IV SCH (15:50)
[2020-07-19] MEDS ORDERED: CALCIUM CARBONATE LIQUID 500 MG/5 ML CUP PO PRN (16:20)
[2020-07-19 17:10] LABS: Glucose,Whole Blood 159 mg/dL (75-99)
[2020-07-19] MEDS: SYMBICORT 160-4.5 MCG INHALER INHALATION SCH (19:32)
[2020-07-19] MEDS: MONTELUKAST 10 MG TAB PO SCH (20:36)
--- NOTE | 2020-07-19 20:53 | P.PN ---
Progress Note - Text Progress Note Date: 07/19/20 Chief Complaint: short of breath History of presenting complaint: This is a pleasant 70-year-old patient of Dr. Willis. Patient also follows with Dr. Grider from pulmonary. Patient presents with 1 week of increasing chest tightness and wheezing shortness of breath slight cough. No sputum production. Some rawness in the throat. Denies any fever and chills. Appetite is fair. With diet and rundown. 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 Also had some lower extremity swelling secondary to amlodipine, that was discontinued. Also been diagnosed with ALLERGIC asthma. Was taken off beta blockers by Dr. Singh for his bronchospasm. Month ago he did complain of red painful spots on lower extremity. Hospital course Admitted with acute obstructive asthma exacerbation. Oral pharyngeal candidiasis Started on bronchodilators, steroids. Added prazosin for blood pressure control. Today-breathing better. Less wheezing. Appetite improving. Sitting up in a chair. Cough present. Review of systems: Was done for constitutional, cardiovascular, GI, pulmonary. relevant finding as above Active Medications Acetaminophen (Acetaminophen Tab 325 Mg Tab) 650 mg PO Q6HR PRN PRN Reason: Fever and/ or Pain Last Admin: 07/19/20 14:37 Dose: 650 mg Documented by: Albuterol/Ipratropium (Ipratropium-Albuterol 3 Ml Neb) 3 ml INHALATION RT-Q4H PRN PRN Reason: Shortness Of Breath Or Wheezing Albuterol/Ipratropium (Ipratropium-Albuterol 3 Ml Neb) 3 ml INHALATION RT-QID [facility] Last Admin: 07/19/20 19:32 Dose: 3 ml Documented by: Budesonide/Formoterol Fumarate (Symbicort 160-4.5 Mcg Inhaler) 2 puff INHALATION RT-BID [facility] Last Admin: 07/19/20 19:32 Dose: 2 puff Documented by: Calcium Carbonate/Glycine (Calcium Carbonate Liquid 500 Mg/5 Ml Cup) 500 mg PO BID-W/MEALS PRN PRN Reason: GI Upset Last Admin: 07/19/20 17:28 Dose: 500 mg Documented by: Enoxaparin Sodium (Enoxaparin 40 Mg/0.4 Ml Syringe) 40 mg SQ DAILY [facility] Last Admin: 07/19/20 08:03 Dose: 40 mg Documented by: Fluconazole (Fluconazole 100 Mg Tab) 100 mg PO DAILY [facility] Last Admin: 07/19/20 08:06 Dose: 100 mg Documented by: Loratadine (Loratadine 10 Mg Tab) 10 mg PO DAILY [facility] Last Admin: 07/19/20 08:06 Dose: 10 mg Documented by: Losartan Potassium (Losartan 50 Mg Tab) 100 mg PO DAILY [facility] Last Admin: 07/19/20 08:05 Dose: 100 mg Documented by: Methylprednisolone Sodium Succinate (Methylprednisolone Sod Succi 40 Mg/Ml 1 Ml Vial) 40 mg IV Q8HR [facility] Last Admin: 07/19/20 15:50 Dose: 40 mg Documented by: Miscellaneous Information (Rx Info: Iv Contrast Was Given 1 Each Misc) 1 each MISCELLANE DAILY PRN PRN Reason: Per Protocol Stop: 07/20/20 15:09 Montelukast Sodium (Montelukast 10 Mg Tab) 10 mg PO HS [facility] Last Admin: 07/19/20 20:36 Dose: 10 mg Documented by: Pantoprazole Sodium (Pantoprazole 40 Mg Tablet) 40 mg PO AC-BRKFST [facility] Last Admin: 07/19/20 08:04 Dose: 40 mg Documented by: Prazosin HCl (Prazosin 1 Mg Cap) 2 mg PO TID [facility] Last Admin: 07/19/20 20:36 Dose: 2 mg Documented by: Physical examination: VITAL SIGNS: 98.5, 98, 18, 1 4191, 90% on 2 L GENERAL: Sitting up in a chair, breathing better EYES: Pupils equal. Conjunctiva normal. HEENT: [External appearance of nose and ears normal, oral cavity white spots in the pharynx. NECK: JVD not raised; masses not palpable. HEART: First and second heart sounds are normal; no edema. LUNGS: Respiratory rate increased, decreased breath sounds, decreased wheezing. ABDOMEN: Soft, nontender, liver spleen not palpable, no masses palpable. PSYCH: Alert and oriented x3; mood and affect normal. INVESTIGATIONS, reviewed in the clinical context: White count 10.1 hemoglobin 15.3 platelets 274 potassium 4.1 creatinine 1.01 Troponin I less than 0.012 EKG tracing personally reviewed by me-normal sinus rhythm Chest x-ray film personally reviewed by me-lung tee clear Computed tomography scan of the chest with contrast-mediastinal lymphadenopathy unchanged from earlier ascending thoracic aorta intact ACL 4.1 cm Assessment: -Acute obstructive asthma exacerbation-improving -Obesity BMI 32.7 -Oropharyngeal candidiasis from use of steroid inhaler -Essential hypertension, uncontrolled -Obstructive sleep apnea patient unable to use CPAP Plan: on DuoNeb, inhaled and IV [id number] back on dose l. Continue Diflucan . Discussed with patient. Change Claritin to 5 mg twice a day. Hopefully home tomorrow.
[2020-07-19 21:18] LABS: Glucose,Whole Blood 172 mg/dL (75-99)
[2020-07-20 00:56] LABS: Glucose,Whole Blood 167 mg/dL (75-99)
[2020-07-20] MEDS: methylPREDNISolone SOD SUCCI 40 MG/ML 1 ML VIAL IV SCH ×3 (01:04→15:07)
[2020-07-20 07:04] LABS: Glucose,Whole Blood 157 mg/dL (75-99)
[2020-07-20] MEDS: LORATADINE 10 MG TAB PO SCH (07:53)
[2020-07-20] MEDS: LOSARTAN 50 MG TAB PO SCH (07:53)
[2020-07-20] MEDS: FLUCONAZOLE 100 MG TAB PO SCH (07:53)
[2020-07-20] MEDS: PANTOPRAZOLE 40 MG TABLET PO SCH (07:53)
[2020-07-20] MEDS: ENOXAPARIN 40 MG/0.4 ML SYRINGE SQ SCH (07:53)
[2020-07-20] MEDS: IPRATROPIUM-ALBUTEROL 3 ML NEB INHALATION SCH ×4 (08:36→19:54)
[2020-07-20] MEDS: SYMBICORT 160-4.5 MCG INHALER INHALATION SCH ×2 (08:36→19:54)
[2020-07-20] MEDS: PRAZOSIN 1 MG CAP PO SCH ×3 (09:41→21:17)
[2020-07-20 11:25] LABS: Glucose,Whole Blood 180 mg/dL (75-99)
--- NOTE | 2020-07-20 14:51 | PN ---
PROGRESS NOTE DATE OF SERVICE: 07/20/2020 INTERVAL HISTORY: This is a 70-year-old gentleman who was admitted with acute asthma exacerbation, acute purulent tracheobronchitis, also had oropharyngeal candidiasis. A chest CT was done yesterday which was reviewed personally by me and showed mediastinal lymphadenopathy unchanged and indeterminate left adrenal gland lobulated nodule to be followed up in the outpatient setting. Dr. Castle is following the patient closely. Patient is on broad-spectrum antibiotics and IV steroids. PAST MEDICAL HISTORY: Reviewed. REVIEW OF SYSTEMS: CARDIOVASCULAR SYSTEM: No angina or palpitations. RESPIRATORY SYSTEM: As mentioned earlier. GI: As mentioned earlier. : As mentioned earlier. NEUROLOGIC: No numbness or weakness. CURRENT MEDICATIONS: Reviewed include Tylenol, DuoNeb, Symbicort, Tums, Lovenox, Diflucan, Claritin, Solu-Medrol, Singulair, Protonix, Minipress. PHYSICAL EXAM: GENERAL: Patient is alert and oriented times three. VITAL SIGNS: Pulse is 90, blood pressure 189/85, respirations 18, temperature 97.3, pulse ox 92% on 4 liters. HEENT: Conjunctivae normal. NECK: No jugular venous distention. RESPIRATORY: Breath sounds diminished at the bases. Bilateral scattered rhonchi and crackles. HEART: S1 and S2, muffled. ABDOMEN: Soft, no tenderness. EXTREMITIES: No edema, no swelling. NERVOUS: No focal deficits. LABS: Eosinophils 1.9. Otherwise glucose 189. Most recent labs are not available. ASSESSMENT: 1. Bronchial asthma acute exacerbation with acute purulent tracheobronchitis. 2. Eosinophilia. 3. Obesity. 4. Oropharyngeal candidiasis. 5. Hypertension. 6. Increased random blood sugar possibly secondary to steroids. 7. Obstructive sleep apnea. 8. Hypertension history. 9. History of mediastinal adenopathy possibly due to histoplasmosis exposed to chicken manure and bronchitis. Spot in the adrenal gland. 10.History of degenerative joint disease. 11.Remote history of nicotine dependence. 12.FULL CODE. 13.Obesity with body mass index of 32.7. RECOMMENDATIONS AND DISCUSSION: In this 70-year-old gentleman who presented with multiple complex medical issues, we will monitor the patient closely. Continue the current management and continue symptomatic treatment. Will continue with antibiotics and continue with bronchodilators and steroids. Will closely follow with pulmonology. Guarded prognosis because of multiple complex medical conditions. MMODL / IJN: [id number] / FLORINDA
[2020-07-20] MEDS: TRIAMTERENE-HCTZ 37.5-25MG 1 EACH CAP PO SCH (15:07)
[2020-07-20] MEDS: amLODIPine 10 MG TAB PO SCH (15:07)
[2020-07-20 16:35] LABS: Glucose,Whole Blood 136 mg/dL (75-99)
[2020-07-20] MEDS: INSULIN ASPART (NovoLOG) 100 UNIT/ML VIAL SQ SCH ×2 (16:57→21:17)
[2020-07-20 20:38] LABS: Glucose,Whole Blood 162 mg/dL (75-99)
[2020-07-20] MEDS: MONTELUKAST 10 MG TAB PO SCH (21:17)
[2020-07-21] MEDS: methylPREDNISolone SOD SUCCI 40 MG/ML 1 ML VIAL IV SCH ×2 (00:46→07:58)
[2020-07-21 04:18] VITALS: RESP 18
[2020-07-21 06:48] LABS: Basophils % (A) 0 %; Eosinophils # (A) 0.1 k/uL (0-0.7); Eosinophils % (A) 1 %; HCT 45.4 % (39.0-53.0); Lymphocytes # (A) 0.8 k/uL (1.0-4.8); Lymphocytes % (A) 7 %; MCH 28.7 pg (25.0-35.0); MCHC 32.9 g/dL (31.0-37.0); MCV 87.1 fL (80.0-100.0); Mean Platelet Volume 7.6; Monocytes # (A) 0.4 k/uL (0-1.0); Monocytes % (A) 3 %; Neutrophils # (A) 10.7 k/uL (1.3-7.7); Neutrophils % (A) 89 %; Platelet Count 232 k/uL (150-450); RBC 5.21 m/uL (4.30-5.90); RDW 12.9 % (11.5-15.5); WBC 12.1 k/uL (3.8-10.6)
[2020-07-21] MEDS: INSULIN ASPART (NovoLOG) 100 UNIT/ML VIAL SQ SCH (07:14)
[2020-07-21 07:19] LABS: Glucose,Whole Blood 132 mg/dL (75-99)
[2020-07-21] MEDS: amLODIPine 10 MG TAB PO SCH (07:48)
[2020-07-21] MEDS: ENOXAPARIN 40 MG/0.4 ML SYRINGE SQ SCH (08:00)
[2020-07-21] MEDS: PANTOPRAZOLE 40 MG TABLET PO SCH (08:01)
[2020-07-21] MEDS: LOSARTAN 50 MG TAB PO SCH (08:01)
[2020-07-21] MEDS: PRAZOSIN 1 MG CAP PO SCH (08:01)
[2020-07-21] MEDS: TRIAMTERENE-HCTZ 37.5-25MG 1 EACH CAP PO SCH (08:01)
[2020-07-21] MEDS: FLUCONAZOLE 100 MG TAB PO SCH (08:01)
[2020-07-21] MEDS: LORATADINE 10 MG TAB PO SCH (08:01)
[2020-07-21] MEDS: SYMBICORT 160-4.5 MCG INHALER INHALATION SCH (08:18)
[2020-07-21] MEDS: IPRATROPIUM-ALBUTEROL 3 ML NEB INHALATION SCH ×2 (08:18→11:32)
[2020-07-21 09:44] LABS: African American GFR (CKD) 89.2 (60.0-200.0); Anion Gap 8.2 mmol/L (4.00-12.00); Calcium 9.2 mg/dL (8.7-10.3); Carbon Dioxide 24.8 mmol/L (21.6-31.8); Potassium 4.3 mmol/L (3.5-5.5)
[2020-07-21 09:48] VITALS: BP 155/94; TEMP 98
[2020-07-21 11:47] LABS: Glucose,Whole Blood 140 mg/dL (75-99)
[2020-07-21 11:51] VITALS: PULSE 76
--- NOTE | 2020-07-22 04:31 | DS ---
DISCHARGE SUMMARY DATE OF SERVICE: 07/21/2020 FINAL DIAGNOSES: 1. Bronchial asthma acute exacerbation with acute purulent tracheobronchitis. 2. Eosinophilia. 3. Obesity. 4. Oropharyngeal candidiasis. 5. Hypertension. 6. Increased random blood sugar possibly secondary to steroids. 7. Obstructive sleep apnea. 8. Hypertension history. 9. History of mediastinal lymphadenopathy, possibly secondary to histoplasmosis exposed to chicken manure and bronchitis according to the patient. 10.Spot in the adrenal gland. 11.History of degenerative joint disease. 12.Obesity with body mass index of 32.7. 13.Remote history of nicotine dependence. 14.FULL CODE. DISCHARGE DISPOSITION: The patient will be discharged in stable condition with guarded prognosis. Total time taken 35 minutes. HISTORY OF PRESENT ILLNESS: This 70-year-old gentleman admitted with acute bronchial asthma acute exacerbation and was treated with bronchodilators, steroids, antibiotics. Patient improved significantly. Patient also had multiple findings as mentioned above. I have recommended Symbicort which is not covered by insurance apparently. I am trying Pulmicort at this time for insurance coverage. On exam, vitals are stable. CARDIOVASCULAR: S1, S2 muffled. RESPIRATORY: A few scattered rhonchi. ABDOMEN: Soft. NERVOUS SYSTEM: No focal deficits. DISCHARGE ADVICE AND MEDICATIONS: 1. Diet is cardiac. 2. Activity limited until followup. 3. Follow up with Dr. Willis in 1 to 2 days. 4. Follow up with Dr. Grider in 1 week. Medications will be as follows: 1. DuoNeb q.i.d. and p.r.n. 2. Dyazide 1 p.o. daily. 3. Flonase 2 sprays daily. 4. Losartan 100 mg daily. 5. Singulair 10 mg at bedtime. 6. Albuterol p.r.n. 7. Ceftin 500 mg p.o. b.i.d. for 3 days. 8. Claritin 10 mg daily. 9. Diflucan 100 mg daily for 5 days. 10.Prednisone 40 mg daily for 3 days, 30 for 3 days, 20 for 3 days 10 for 3 days. 11.Pulmicort 1 mg b.i.d., is covered by insurance. Once again, the patient discharged in stable condition with guarded prognosis. MMODL / IJN: [id number] /
== END 2020-07-21 13:53 | disposition home or self-care (01) | DRG 202 ==
LOC: EC 11:12 → 4SSUR 13:14
PROVIDERS: ADMIT Hospitalist; ATTEND Hospitalist
DX: J45.901 Unspecified asthma with (acute) exacerbation (principal); B37.89 Other sites of candidiasis; J20.9 Acute bronchitis, unspecified; R59.0 Localized enlarged lymph nodes; G47.33 Obstructive sleep apnea (adult) (pediatric); E66.9 Obesity, unspecified; Z68.32 Body mass index [BMI] 32.0-32.9, adult; D72.1 Eosinophilia; E27.8 Other specified disorders of adrenal gland; I10 Essential (primary) hypertension; Z60.2 Problems related to living alone; T46.1X5A Adverse effect of calcium-channel blockers, initial encounter; R73.9 Hyperglycemia, unspecified; H81.02 Meniere's disease, left ear; Z82.0 Family history of epilepsy and other diseases of the nervous system; T38.0X5A Adverse effect of glucocorticoids and synthetic analogues, initial encounter; Z88.8 Allergy status to other drugs, medicaments and biological substances; Z57.4 Occupational exposure to toxic agents in agriculture; Z87.891 Personal history of nicotine dependence; Z79.899 Other long term (current) drug therapy; Z87.01 Personal history of pneumonia (recurrent)
CPT/HCPCS: 36415; 71046; 71260; 80048; 80053; 82164; 83605; 83880; 84484; 85025; 85610; 85730; 93005; 94640; 94760; 96374; 99285

== ENCOUNTER → 2020-08-03 | Outpatient (CLI) | payer MEDICARE, OTHER ==
--- NOTE | 2020-08-05 12:38 | PE ---
Nuclear medicine PET/CT HISTORY: Left adrenal mass, E 27.8, C 74.02, initial Patient received 13.9 mCi F-18 FDG intravenously, delayed scanning performed from skull base to the m id thighs. Localization and attenuation correction CT scan was performed. Correlation CT chest 07/18/2020 Chest and neck: There is no suspicious uptake. No cervical or supraclavicular adenopathy. Borderline enlarged mediastinal nodes, prevascular nodes, subcarinal node are all present without associated hyp ermetabolic uptake. There is no evident lung mass, no pleural or pericardial effusion. ABDOMEN: Left adrenal lesion shows some associated calcification, nonaggressive appearance, there is no associated hypermetabolic uptake. No retroperitoneal adenopathy or suspicious liver mass. There is no ascites. Prostate calcifications are present. Osseous structures show no suspicious uptake. IMPRESSION: No suspicious hypermetabolic uptake.
== END | disposition home or self-care (01) ==
LOC: RADPETMAIN 08:04
PROVIDERS: ATTEND Family Medicine
DX: C74.02 Malignant neoplasm of cortex of left adrenal gland (principal)
CPT/HCPCS: 78815; A9552

== ENCOUNTER 2020-11-19 13:36 | Inpatient (IN) | payer MEDICARE, OTHER ==
[2020-11-19] MEDS ORDERED: IPRATROPIUM-ALBUTEROL 3 ML NEB INHALATION STA (14:04)
[2020-11-19] MEDS ORDERED: ALBUTEROL NEBULIZED 2.5 MG/3 ML INHALATION STA (14:04)
[2020-11-19] MEDS ORDERED: methylPREDNISolone SOD SUCCI 125 MG/2 ML VIAL IV STA (14:04)
[2020-11-19] MEDS ORDERED: MAGNESIUM SULFATE-D5W PMX 1 GM in DEXTROSE/WATER 1 100ML.BAG IVPB STA (14:04)
[2020-11-19 14:37] LABS: Basophils # (A) 0.1 k/uL (0-0.2); Basophils % (A) 1 %; Eosinophils # (A) 1.8 k/uL (0-0.7); Eosinophils % (A) 17 %; HCT 45.9 % (39.0-53.0); Lymphocytes # (A) 1.8 k/uL (1.0-4.8); Lymphocytes % (A) 16 %; MCH 30.4 pg (25.0-35.0); MCHC 34.8 g/dL (31.0-37.0); MCV 87.3 fL (80.0-100.0); Monocytes # (A) 0.5 k/uL (0-1.0); Monocytes % (A) 5 %; Neutrophils # (A) 6.5 k/uL (1.3-7.7); Neutrophils % (A) 60 %; Platelet Count 211 k/uL (150-450); RBC 5.26 m/uL (4.30-5.90); WBC 10.8 k/uL (3.8-10.6)
[2020-11-19 14:45] LABS: Albumin 4.2 g/dL (3.5-5.0); Calcium 9.9 mg/dL (8.4-10.2); Total Bilirubin 0.8 mg/dL (0.2-1.3); Total Protein 7.2 g/dL (6.3-8.2)
--- NOTE | 2020-11-19 14:48 | ED ---
SOB HPI - General Chief Complaint: Shortness of Breath Stated Complaint: asthma Time Seen by Provider: 11/19/20 13:40 Source: patient Mode of arrival: wheelchair Limitations: no limitations - History of Present Illness Initial Comments: 70-year-old male with past medical history of asthma and COPD who presents to the emergency room with reported shortness of breath. States he has been short of breath for the past week. He recently traveled to [place] for his daughter lives. His having significant difficulty there and decided to drive home. He h as been using his nebulizers without improvement. Patient is not oxygen dependent. Admits to a nonproductive cough. No fevers or chills. No sick contacts with similar symptoms. States it feels consistent with his previous asthma attacks. He normally sees Dr. Grider. Admits chest pain when c oughing. Denies history of cardiac disease. Has trace lower externally swelling which she states is normal for him. Denies calf pain or swelling. No history of DVT or PE. Patient on any anticoagulation. No recent steroid use. No other alleviating, precipitating laughing factors - Related Data Home Medications Medication Instructions Recorded Confirmed Albuterol Nebulized [Ventolin 2.5 mg INHALATION RT-QID PRN 07/18/20 11/19/20 Nebulized] Ipratropium Nebulized [Atrovent 0.5 mg INHALATION RT-QID PRN 07/18/20 11/19/20 Nebulized 0.2 MG/ML] Losartan Potassium 100 mg PO DAILY 07/18/20 11/19/20 Triamterene-Hctz 37.5-25Mg 1 cap PO DAILY 07/18/20 11/19/20 [Dyazide 37.5-25 Capsule] Budesonide [Pulmicort] 1 mg INHALATION RT-BID PRN 11/19/20 11/19/20 Furosemide [Lasix] 20 mg PO DAILY PRN 11/19/20 11/19/20 Nystatin 100,000 Unit/ml Susp 5 ml PO QID PRN 11/19/20 11/19/20 [Mycostatin Oral Susp] cloNIDine HCL [Catapres] 0.1 mg PO DAILY PRN 11/19/20 11/19/20 hydrALAZINE HCL 12.5 - 25 mg PO BID 11/19/20 11/19/20 Allergies Allergy/AdvReac Type Severity Reaction Status Date / Time Beta-Blockers AdvReac Diarrhea Verified 11/19/20 15:06 (Beta-Adrenergic Bloc lisinopril AdvReac Swelling Verified 11/19/20 15:06 Review of Systems ROS Statement: Those systems with pertinent positive or pertinent negative responses have been documented in the HPI. ROS Other: All systems not noted in ROS Statement are negative. 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, bronchitis, pt states per cat scan he had a "spot" on adrenal gland and was to have MRI but d/t covid was never able to get this done, TANNER pt has Cpap but states he does not sleep well when using so uses infrequently, past lower extremity edema thought d/t norvasc-dc'd and went away, L ear meniere's disease, past vertigo History of Any Multi-Drug Resistant Organisms: None Reported Past Surgical History: Orthopedic Surgery Additional Past Surgical History / Comment(s): lung biopsy Past Anesthesia/Blood Transfusion Reactions: No Reported Reaction Past Psychological History: No Psychological Hx Reported Smoking Status: Former smoker Past Alcohol Use History: Rare Past Drug Use History: None Reported - Past Family History Mother Additional Family Medical History / Comment(s): Mother had a type of brain shunt d/t fluid. Father Family Medical History: Dementia General Exam Limitations: no limitations Course Vital Signs 11/19/20 11/19/20 11/19/20 13:38 14:27 14:30 Temperature 98.6 F Pulse Rate 120 H Respiratory 22 Rate Blood Pressure 180/98 176/138 O2 Sat by Pulse 95 92 L 94 L Oximetry 11/19/20 11/19/20 11/19/20 14:33 14:44 14:48 Temperature Pulse Rate 110 H 109 H Respiratory Rate Blood Pressure O2 Sat by Pulse 95 96 Oximetry 11/19/20 11/19/20 11/19/20 14:56 15:00 15:30 Temperature Pulse Rate 113 H 113 H 111 H Respiratory 20 20 Rate Blood Pressure 134/101 147/92 O2 Sat by Pulse 97 97 Oximetry Medical Decision Making - Medical Decision Making Upon arrival patient was placed into room 27. A thorough history and physical exam is performed. Patient does have his between x-ray wheezing. Also has conversational dyspnea and tachycardia. He is placed on continuous pulse ox and cardiac monitoring. 12-lead EKG is performed. Patient is given a DuoNeb breathing treatment followed by an albuterol treatment. Laboratory studies were conducted. They do reveal a d-dimer of 0.66. Coronavirus and influenza are negative. As the patient did have recent travel with shortness of breath and did recommend CT of the patient's chest. Initial chest x-ray demonstrates no acute process. CT of the chest is negative for PE. Results are discussed with the patient. Patient continues to have conversational dyspnea and expiratory wheeze after 1 g of magnesium and 125 mg a slight mitral. Because of this I did recommend hospitalization for patient did agree to. I spoke with Dr. Casillas who accepted. I will consult . Patient is awaiting a bed on the floor - Lab Data Result diagrams: 11/19/20 14:27 11/19/20 14:27 Lab Results 11/19/20 11/19/20 11/19/20 Range/Units 14:27 14:27 14:27 WBC 10.8 H (3.8-10.6) k/uL RBC 5.26 (4.30-5.90) m/uL Hgb 16.0 (13.0-17.5) gm/dL Hct 45.9 (39.0-53.0) % MCV 87.3 (80.0-100.0) fL MCH 30.4 (25.0-35.0) pg MCHC 34.8 (31.0-37.0) g/dL RDW 13.0 (11.5-15.5) % Plt Count 211 (150-450) k/uL MPV 7.0 Neutrophils % 60 % Lymphocytes % 16 % Monocytes % 5 % Eosinophils % 17 % Basophils % 1 % Neutrophils # 6.5 (1.3-7.7) k/uL Lymphocytes # 1.8 (1.0-4.8) k/uL Monocytes # 0.5 (0-1.0) k/uL Eosinophils # 1.8 H (0-0.7) k/uL Basophils # 0.1 (0-0.2) k/uL PT 9.9 (9.0-12.0) sec INR 0.9 (<1.2) APTT 24.2 (22.0-30.0) sec D-Dimer 0.66 H (<0.60) mg/L FEU Sodium 140 (137-145) mmol/L Potassium 4.0 (3.5-5.1) mmol/L Chloride 104 (98-107) mmol/L Carbon Dioxide 27 (22-30) mmol/L Anion Gap 9 mmol/L BUN 17 (9-20) mg/dL Creatinine 1.00 (0.66-1.25) mg/dL Est GFR (CKD-EPI)AfAm 89 (>60 ml/min/1.73 sqM) Est GFR (CKD-EPI)NonAf 77 (>60 ml/min/1.73 sqM) Glucose 100 H (74-99) mg/dL Plasma Lactic Acid Johnson (0.7-2.0) mmol/L Calcium 9.9 (8.4-10.2) mg/dL Total Bilirubin 0.8 (0.2-1.3) mg/dL AST 30 (17-59) U/L ALT 23 (4-49) U/L Alkaline Phosphatase 61 (38-126) U/L Troponin I (0.000-0.034) ng/mL NT-Pro-B Natriuret Pep pg/mL Total Protein 7.2 (6.3-8.2) g/dL Albumin 4.2 (3.5-5.0) g/dL Coronavirus (PCR) (Not Detectd) Influenza Type A RNA (Not Detectd) Influenza Type B (PCR) (Not Detectd) 11/19/20 11/19/20 11/19/20 Range/Units 14:27 14:27 14:27 WBC (3.8-10.6) k/uL RBC (4.30-5.90) m/uL Hgb (13.0-17.5) gm/dL Hct (39.0-53.0) % MCV (80.0-100.0) fL MCH (25.0-35.0) pg MCHC (31.0-37.0) g/dL RDW (11.5-15.5) % Plt Count (150-450) k/uL MPV Neutrophils % % Lymphocytes % % Monocytes % % Eosinophils % % Basophils % % Neutrophils # (1.3-7.7) k/uL Lymphocytes # (1.0-4.8) k/uL Monocytes # (0-1.0) k/uL Eosinophils # (0-0.7) k/uL Basophils # (0-0.2) k/uL PT (9.0-12.0) sec INR (<1.2) APTT (22.0-30.0) sec D-Dimer (<0.60) mg/L FEU Sodium (137-145) mmol/L Potassium (3.5-5.1) mmol/L Chloride (98-107) mmol/L Carbon Dioxide (22-30) mmol/L Anion Gap mmol/L BUN (9-20) mg/dL Creatinine (0.66-1.25) mg/dL Est GFR (CKD-EPI)AfAm (>60 ml/min/1.73 sqM) Est GFR (CKD-EPI)NonAf (>60 ml/min/1.73 sqM) Glucose (74-99) mg/dL Plasma Lactic Acid Johnson 1.4 (0.7-2.0) mmol/L Calcium (8.4-10.2) mg/dL Total Bilirubin (0.2-1.3) mg/dL AST (17-59) U/L ALT (4-49) U/L Alkaline Phosphatase (38-126) U/L Troponin I <0.012 (0.000-0.034) ng/mL NT-Pro-B Natriuret Pep 50 pg/mL Total Protein (6.3-8.2) g/dL Albumin (3.5-5.0) g/dL Coronavirus (PCR) (Not Detectd) Influenza Type A RNA (Not Detectd) Influenza Type B (PCR) (Not Detectd) 11/19/20 Range/Units 14:27 WBC (3.8-10.6) k/uL RBC (4.30-5.90) m/uL Hgb (13.0-17.5) gm/dL Hct (39.0-53.0) % MCV (80.0-100.0) fL MCH (25.0-35.0) pg MCHC (31.0-37.0) g/dL RDW (11.5-15.5) % Plt Count (150-450) k/uL MPV Neutrophils % % Lymphocytes % % Monocytes % % Eosinophils % % Basophils % % Neutrophils # (1.3-7.7) k/uL Lymphocytes # (1.0-4.8) k/uL Monocytes # (0-1.0) k/uL Eosinophils # (0-0.7) k/uL Basophils # (0-0.2) k/uL PT (9.0-12.0) sec INR (<1.2) APTT (22.0-30.0) sec D-Dimer (<0.60) mg/L FEU Sodium (137-145) mmol/L Potassium (3.5-5.1) mmol/L Chloride (98-107) mmol/L Carbon Dioxide (22-30) mmol/L Anion Gap mmol/L BUN (9-20) mg/dL Creatinine (0.66-1.25) mg/dL Est GFR (CKD-EPI)AfAm (>60 ml/min/1.73 sqM) Est GFR (CKD-EPI)NonAf (>60 ml/min/1.73 sqM) Glucose (74-99) mg/dL Plasma Lactic Acid Johnson (0.7-2.0) mmol/L Calcium (8.4-10.2) mg/dL Total Bilirubin (0.2-1.3) mg/dL AST (17-59) U/L ALT (4-49) U/L Alkaline Phosphatase (38-126) U/L Troponin I (0.000-0.034) ng/mL NT-Pro-B Natriuret Pep pg/mL Total Protein (6.3-8.2) g/dL Albumin (3.5-5.0) g/dL Coronavirus (PCR) Not Detected (Not Detectd) Influenza Type A RNA Not Detected (Not Detectd) Influenza Type B (PCR) Not Detected (Not Detectd) - EKG Data EKG Comments: EKG demonstrates a sinus tachycardia with a ventricular rate of 103. NV interval 154. QRS 98. QTC of 437. No acute ST segment elevations or depressions. Some baseline artifact Disposition Clinical Impression: Dyspnea, Asthma exacerbation Disposition: ADMITTED IP TO THIS HOSP Condition: Stable Is patient prescribed a controlled substance at d/c from ED?: No Referrals: Ford Willis MD [Primary Care Provider] - 1-2 days Decision to Admit Reason: Admit from EC Decision Date: 11/19/20 Decision Time: 17:11
[2020-11-19 14:51] LABS: SARS-CoV-2 RNA Rapid Abbott Not Detected (Not Detectd)
[2020-11-19 15:01] LABS: INR 0.9 (<1.2); Partial Thromboplastin Time 24.2 sec (22.0-30.0); Prothrombin Time 9.9 sec (9.0-12.0)
[2020-11-19 15:16] LABS: D-Dimer 0.66 mg/L FEU (<0.60)
--- NOTE | 2020-11-19 15:37 | XR ---
EXAMINATION TYPE: XR chest 2V DATE OF EXAM: 11/19/2020 COMPARISON: 07/18/2020 HISTORY: 70-year-old male shortness of breath, difficulty breathing TECHNIQUE: PA and lateral views FINDINGS: The cardiomediastinal silhouette, aorta, and pulmonary vasculature are within normal limits. Some str jyotsna atelectasis in the mid and lower lungs. No consolidation or pleural effusion. IMPRESSION: No acute cardiopulmonary process.
[2020-11-19] MEDS ORDERED: NALOXONE 0.4 MG/ML 1 ML VIAL IV PRN (17:11)
[2020-11-19] MEDS ORDERED: NYSTATIN 100,000 UNIT/ML SUSP 500,000 UNIT/5 ML CUP PO PRN (17:22)
[2020-11-19] MEDS ORDERED: FUROSEMIDE 20 MG TAB PO PRN (17:22)
[2020-11-19] MEDS ORDERED: cloNIDine HCL 0.1 MG TAB PO PRN (17:22)
--- NOTE | 2020-11-19 17:24 | CT ---
EXAMINATION TYPE: CT chest angio for PE DATE OF EXAM: 11/19/2020 COMPARISON: 07/18/2020 HISTORY: difficulty breathing CT DLP: 564 mGycm Automated exposure control for dose reduction was used. CONTRAST: Performed with IV Contrast, patient injected with 100 mL of Isovue 370. There are 3-D post processed images. The lungs are clear of consolidation. There is no evidence of a pulmonary mass. There is no pleural e ffusion. There is no pericardial effusion. Heart size is fairly normal. Thoracic aorta appears intact. There is mild aneurysm of the ascending aorta that measures 4.1 cm. Th ere is no dissection. There is normal contrast opacification of the pulmonary arteries. I see no definite filling defect. T here is low attenuation in tiny branches of the left lower lobe pulmonary artery posterior basal segm ent which I think is artifactual. The bony thorax is intact. I see no compression fracture. Sternum is intact. There are numerous enlarged mediastinal lymph nodes. These measure up to 2 cm. I see no significant b ronchial adenopathy. IMPRESSION: No evidence of pulmonary embolism. No evidence of acute lung disease. 4.1 cm mild aneurysm of the ascending aorta unchanged. There is mild to moderate mediastinal adenopat hy unchanged. There is clearing of the left lower lobe mild pneumonia and atelectasis compared to old exam.
[2020-11-19] MEDS: IPRATROPIUM-ALBUTEROL 3 ML NEB INHALATION SCH ×3 (17:58→23:44)
[2020-11-19] MEDS: BUDESONIDE 1 MG/2 ML NEBU INHALATION PRN (20:32)
[2020-11-19] MEDS: methylPREDNISolone SOD SUCCI 40 MG/ML 1 ML VIAL IV SCH (23:25)
[2020-11-19] MEDS ORDERED: PANTOPRAZOLE 40 MG TABLET PO PRN (23:33)
[2020-11-20] MEDS: IPRATROPIUM-ALBUTEROL 3 ML NEB INHALATION SCH ×5 (04:11→19:06)
[2020-11-20 06:48] LABS: Basophils % (A) 0 %; Eosinophils % (A) 0 %; HCT 44.1 % (39.0-53.0); HGB 15.3 gm/dL (13.0-17.5); Lymphocytes # (A) 0.8 k/uL (1.0-4.8); Lymphocytes % (A) 8 %; MCHC 34.8 g/dL (31.0-37.0); MCV 89.1 fL (80.0-100.0); Mean Platelet Volume 7.1; Monocytes # (A) 0.1 k/uL (0-1.0); Monocytes % (A) 1 %; Neutrophils # (A) 9.6 k/uL (1.3-7.7); Neutrophils % (A) 91 %; Platelet Count 218 k/uL (150-450); RBC 4.95 m/uL (4.30-5.90); RDW 13.1 % (11.5-15.5); WBC 10.6 k/uL (3.8-10.6)
[2020-11-20 07:05] LABS: Glucose,Whole Blood 161 mg/dL (75-99)
[2020-11-20] MEDS: BUDESONIDE 1 MG/2 ML NEBU INHALATION PRN (07:38)
[2020-11-20] MEDS: methylPREDNISolone SOD SUCCI 40 MG/ML 1 ML VIAL IV SCH ×3 (08:02→23:12)
[2020-11-20] MEDS: TRIAMTERENE-HCTZ 37.5-25MG 1 EACH CAP PO SCH (08:02)
[2020-11-20] MEDS: LOSARTAN 50 MG TAB PO SCH (08:03)
[2020-11-20 09:55] LABS: African American GFR (CKD) 79.5 (60.0-200.0); Anion Gap 7.1 mmol/L (4.00-12.00); BUN/Creat Ratio 17.27 Ratio (12.00-20.00); Calcium 9.7 mg/dL (8.7-10.3); Carbon Dioxide 25.9 mmol/L (21.6-31.8); Non-African American GFR(CKD) 68.6 (60.0-200.0); Potassium 4.6 mmol/L (3.5-5.5)
[2020-11-20 11:23] LABS: Glucose,Whole Blood 146 mg/dL (75-99)
[2020-11-20] MEDS: hydrALAZINE HCL 25 MG TAB PO SCH ×3 (11:58→21:04)
[2020-11-20] MEDS ORDERED: ALPRAZolam 0.5 MG TAB PO PRN (12:20)
--- NOTE | 2020-11-20 15:11 | P.CNPUL ---
History of Present Illness Consult date: 11/20/20 Requesting physician: Cuco Casillas Reason for consult: dyspnea Chief complaint: Shortness of breath History of present illness: This is a very pleasant 70-year-old gentleman who follows with Dr. Willis as his primary care provider. He has a history of hypertension, former smoker, mild intermittent chronic bronchial asthma, histoplasmosis, mediastinal lymphadenopathy with previous mediastinoscopy and negative for malignancy. He also had a history of left adrenal mass and PET scan of July 2020 revealed no suspicious hypermetabolic uptake. He follows with Dr. Grider in our office. He has been maintained on Pulmicort and albuterol. Recently he traveled to [place] to visit his daughter. He developed increasing shortness of breath and was concerned and drove himself back to [place]. He had been using his nebulizer without much improvement. He presented here to the emergency room yesterday with continued shortness of breath. No fever, chills or night sweats. No congested cough. No calf pain or swelling. Chest x-ray revealed no acute cardiopulmonary process. CT angiogram revealed no evidence of pulmonary embolism. No evidence of acute lung disease. There is a 4.1 cm mild aneurysm of the ascending or hernia. Unchanged. Also mediastinal adenopathy unchanged. White count 10.6. Hemoglobin 15.3. Sodium 144. Potassium 4.6. Creatinine 1.1. Glucose 157. Influenza screen negative. Coronavirus screen negative. He was initiated on DuoNeb inhalations and Pulmicort. He is seen today in consultation on the regular medical floor. He is currently sitting up in a chair at the bedside. Appears somewhat anxious. He is maintaining O2 saturations in the 90s on room air. Afebrile. Hemodynamically stable. Review of Systems REVIEW OF SYSTEMS: CONSTITUTIONAL: Denies any recent significant weight loss or weight gain. EYES: Denies change in vision. EARS, NOSE, MOUTH, THROAT: Denies headaches, denies sore throat. CARDIOVASCULAR: Denies chest pain, palpitations or syncopal episodes. RESPIRATORY: Positive for shortness of breath, no cough, congestion or hemoptysis. GASTROINTESTINAL: Denies change in appetite, denies abdominal pain GENITOURINARY: Denies hematuria, denies infections. MUSKULOSKELETAL: Denies pain, denies swelling. INTEGUMENTARY: Denies rash, denies eczema. NEUROLOGICAL: Denies recent memory loss, no recent seizure activity. PSYCHIATRIC: Denies anxiety, denies depression. HEMATOLOGIC/LYMPHATIC: Denies anemia, denies enlarged lymph nodes. 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, bronchitis, pt states per cat scan he had a "spot" on adrenal gland and was to have MRI but d/t covid was never able to get this done, TANNER pt has Cpap but states he does not sleep well when using so uses infrequently, past lower extremity edema thought d/t norvasc-dc'd and went away, L ear meniere's disease, past vertigo History of Any Multi-Drug Resistant Organisms: None Reported Past Surgical History: Orthopedic Surgery Additional Past Surgical History / Comment(s): lung biopsy Past Anesthesia/Blood Transfusion Reactions: No Reported Reaction Past Psychological History: No Psychological Hx Reported Additional Psychological History / Comment(s): Pt resides alone. He is independent. He has a nebulizer. Smoking Status: Former smoker Past Alcohol Use History: Rare Additional Past Alcohol Use History / Comment(s): Pt started smoking in 1971 and quit in 1981 Past Drug Use History: None Reported - Past Family History Mother Additional Family Medical History / Comment(s): Mother had a type of brain shunt d/t fluid. Father Family Medical History: Dementia Medications and Allergies Home Medications Medication Instructions Recorded Confirmed Type Albuterol Nebulized [Ventolin 2.5 mg INHALATION RT-QID PRN 07/18/20 11/19/20 History Nebulized] Ipratropium Nebulized [Atrovent 0.5 mg INHALATION RT-QID PRN 07/18/20 11/19/20 History Nebulized 0.2 MG/ML] Losartan Potassium 100 mg PO DAILY 07/18/20 11/19/20 History Triamterene-Hctz 37.5-25Mg 1 cap PO DAILY 07/18/20 11/19/20 History [Dyazide 37.5-25 Capsule] Budesonide [Pulmicort] 1 mg INHALATION RT-BID PRN 11/19/20 11/19/20 History Furosemide [Lasix] 20 mg PO DAILY PRN 11/19/20 11/19/20 History Nystatin 100,000 Unit/ml Susp 5 ml PO QID PRN 11/19/20 11/19/20 History [Mycostatin Oral Susp] cloNIDine HCL [Catapres] 0.1 mg PO DAILY PRN 11/19/20 11/19/20 History hydrALAZINE HCL 12.5 - 25 mg PO BID 11/19/20 11/19/20 History Allergies Allergy/AdvReac Type Severity Reaction Status Date / Time Beta-Blockers AdvReac Diarrhea Verified 11/19/20 15:06 (Beta-Adrenergic Bloc lisinopril AdvReac Swelling Verified 11/19/20 15:06 Physical Exam Vitals: Vital Signs Temp Pulse Pulse Resp BP BP Pulse Ox 11/20/20 14:00 97.8 F 99 18 137/80 93 L 11/20/20 11:37 98 11/20/20 11:36 111 H 164/79 11/20/20 11:28 97 11/20/20 08:00 93 19 11/20/20 07:56 96 11/20/20 07:51 97.5 F L 93 19 182/96 93 L 11/20/20 07:39 92 11/20/20 04:23 100 11/20/20 04:15 100 11/20/20 01:10 98.0 F 95 15 152/69 95 11/19/20 23:56 104 H 11/19/20 23:47 100 11/19/20 20:34 112 H 11/19/20 20:19 108 H 11/19/20 20:00 17 11/19/20 19:15 97.8 F 122 H 17 142/98 96 11/19/20 18:09 110 H 11/19/20 17:59 115 H 11/19/20 17:30 108 H 97 11/19/20 16:30 107/64 11/19/20 16:00 106 H 20 103/75 96 11/19/20 15:30 111 H 20 147/92 97 11/19/20 15:00 113 H 20 134/101 97 11/19/20 14:56 113 H Intake and Output 11/19/20 11/20/20 11/20/20 22:59 06:59 14:59 Intake Total 222 Balance 222 Intake: Oral 222 Other: Weight 115.666 kg GENERAL EXAM: Alert, very pleasant 70-year-old gentleman, on room air, comfortable in no apparent distress. HEAD: Normocephalic. EYES: Normal reaction of pupils, equal size. NOSE: Clear with pink turbinates. THROAT: No erythema or exudates. NECK: No masses, no JVD. CHEST: No chest wall deformity. LUNGS: Equal air entry with faint end expiratory wheeze, diminished. CVS: S1 and S2 normal with no audible murmur, regular rhythm. ABDOMEN: No hepatosplenomegaly, normal bowel sounds, no guarding or rigidity. SPINE: No scoliosis or deformity SKIN: No rashes CENTRAL NERVOUS SYSTEM: No focal deficits, tone is normal in all 4 extremities. EXTREMITIES: There is no peripheral edema. No clubbing, no cyanosis. Peripheral pulses are intact. Results - Laboratory Findings CBC and BMP: 11/20/20 06:22 11/20/20 06:22 PT/INR, D-dimer PT 9.9 sec (9.0-12.0) 11/19/20 14:27 INR 0.9 (<1.2) 11/19/20 14:27 D-Dimer 0.66 mg/L FEU (<0.60) H 11/19/20 14:27 Abnormal lab findings: Abnormal Labs 11/19/20 11/19/20 11/19/20 14:27 14:27 14:27 WBC 10.8 H Neutrophils # Lymphocytes # Eosinophils # 1.8 H D-Dimer 0.66 H Chloride Glucose 100 H POC Glucose (mg/dL) 11/20/20 11/20/20 11/20/20 06:22 06:22 07:04 WBC Neutrophils # 9.6 H Lymphocytes # 0.8 L Eosinophils # D-Dimer Chloride 111 H Glucose 157 H POC Glucose (mg/dL) 161 H 11/20/20 11:22 WBC Neutrophils # Lymphocytes # Eosinophils # D-Dimer Chloride Glucose POC Glucose (mg/dL) 146 H - Diagnostic Findings Chest x-ray: image reviewed CT scan - chest: image reviewed Assessment and Plan Assessment: 1 Acute exacerbation of mild intermittent chronic bronchial asthma possibly triggered by altitude changes while traveling to [place] 2 Multiple environmental ALLERGIES 3 Hypertension 4 History of 10 pack year smoking 5 History of left adrenal gland enlargement, no hypermetabolic uptake on recent PET scan in July 2020 6 History of mediastinal lymphadenopathy with previous mediastinoscopy negative for malignancy. 7 Pulmonary histoplasmosis 8 Anxiety Plan: The patient was seen and evaluated by Dr. Castle Chest x-ray, CAT scans and labs reviewed Continue bronchodilators Add Singulair, IV Solu-Medrol, Xanax as needed Probable discharge in the a.m. We will continue to follow I, the cosigning physician, performed a history & physical examination of the patient. Lungs sounds with mild end expiratory wheeze, diminished. Maintaining good O2 saturations in the 90s on room air. I discussed the assessment and plan of care with my nurse practitioner, Bridget Monaco. I attest to the above consultation as dictated by her. Time with Patient: Greater than 30
[2020-11-20 16:30] LABS: Glucose,Whole Blood 141 mg/dL (75-99)
[2020-11-20] MEDS ORDERED: PANTOPRAZOLE 40 MG TABLET PO PRN (18:20)
[2020-11-20 20:12] LABS: Glucose,Whole Blood 168 mg/dL (75-99)
[2020-11-20] MEDS ORDERED: MONTELUKAST 10 MG TAB PO SCH (21:00)
[2020-11-20] MEDS ORDERED: CALCIUM CARBONATE LIQUID 500 MG/5 ML CUP PO PRN (21:08)
--- NOTE | 2020-11-20 22:08 | P.HPIM ---
History of Present Illness H&P Date: 11/20/20 Chief Complaint: Cough History of presenting complaint: This is a pleasant 70-year-old patient of Dr. Willis. follows with Dr. Grider from pulmonary. 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 Also been diagnosed with ALLERGIC asthma. . Patient now presents with increasing bouts of coughing patient rather agitated cough. Special in speaking. Her talking. Wheezing. Short of breath. Some green sputum. No fever no chills. No edema. Appetite is okay. Review of systems: GEN.: Tired EYES: None HEENT: None NECK: None RESPIRATORY: As above CARDIOVASCULAR: None GASTROINTESTINAL: None GENITOURINARY: None MUSCULOSKELETAL: None LYMPHATICS: None HEMATOLOGICAL: None PSYCHIATRY: None NEUROLOGICAL: None. Past medical history to include: Asthma, hypertension, obstructive sleep apnea does not use CPAP left ear menieres disease Social history: Lives alone. Retired from his own [employer] business. Smoked for 10 years stopped in 1981. Alcohol rarely. Physical examination: VITAL SIGNS: 98.6, 120, 22, 180/98, 95% room air-upon presentation GENERAL: BMI 32.7, sitting up in a chair, intermittently coughing EYES: Pupils equal. Conjunctiva normal. HEENT: [External appearance of nose and ears normal, oral cavity white spots in the pharynx. NECK: JVD not raised; masses not palpable. HEART: First and second heart sounds are normal; no edema. LUNGS: Respiratory rate increased, decreased breath sounds prolonged expiration , some wheezing. ABDOMEN: Soft, nontender, liver spleen not palpable, no masses palpable. PSYCH: Alert and oriented x3; mood and affect normal. NEUROLOGICAL: Cranial nerves grossly intact; no facial asymmetry, power and sensation grossly intact. LYMPHATICS: No lymph nodes palpable in the axilla and neck INVESTIGATIONS, reviewed in the clinical context: White count 10.6 hemoglobin 16 E. now feels 1.8 potassium 4 creatinine 1.0 Troponin I less than 0.012 Influenza type A, type B-not detected Coronavirus [PCR]-not detected Assessment: -Acute obstructive asthma exacerbation-acute exacerbation -Obesity BMI 32.7 -Essential hypertension, -Obstructive sleep apnea patient unable to use CPAP -Acute while pharyngitis Plan: . Patient started on bronchodilators, steroids. Home medications resumed. Patient also does salt water gargle. Already consulted. Care was discussed with the patient. Questions answered. Will also add Pepcid. Past Medical History Past Medical History: Asthma, Hypertension Additional Past Medical History / Comment(s): Allergy induced asthma, mediastinal adenopathy/pt states was d/t histoplasmosis-exposed to chicken ma nure, bronchitis, pt states per cat scan he had a "spot" on adrenal gland and was to have MRI but d/t covid was never able to get this done, [place] pt has Cpap but states he does not sleep well when using so uses infrequently, past lower extremity edema thought d/t norvasc-dc'd and went away, L ear meniere's disease, past vertigo History of Any Multi-Drug Resistant Organisms: None Reported Past Surgical History: Orthopedic Surgery Additional Past Surgical History / Comment(s): lung biopsy Past Anesthesia/Blood Transfusion Reactions: No Reported Reaction Past Psychological History: No Psychological Hx Reported Additional Psychological History / Comment(s): Pt resides alone. He is independent. He has a nebulizer. Smoking Status: Former smoker Past Alcohol Use History: Rare Additional Past Alcohol Use History / Comment(s): Pt started smoking in 1971 and quit in 1981 Past Drug Use History: None Reported - Past Family History Mother Additional Family Medical History / Comment(s): Mother had a type of brain shunt d/t fluid. Father Family Medical History: Dementia Medications and Allergies Home Medications Medication Instructions Recorded Confirmed Type Albuterol Nebulized [Ventolin 2.5 mg INHALATION RT-QID PRN 07/18/20 11/19/20 History Nebulized] Ipratropium Nebulized [Atrovent 0.5 mg INHALATION RT-QID PRN 07/18/20 11/19/20 History Nebulized 0.2 MG/ML] Losartan Potassium 100 mg PO DAILY 07/18/20 11/19/20 History Triamterene-Hctz 37.5-25Mg 1 cap PO DAILY 07/18/20 11/19/20 History [Dyazide 37.5-25 Capsule] Budesonide [Pulmicort] 1 mg INHALATION RT-BID PRN 11/19/20 11/19/20 History Furosemide [Lasix] 20 mg PO DAILY PRN 11/19/20 11/19/20 History Nystatin 100,000 Unit/ml Susp 5 ml PO QID PRN 11/19/20 11/19/20 History [Mycostatin Oral Susp] cloNIDine HCL [Catapres] 0.1 mg PO DAILY PRN 11/19/20 11/19/20 History hydrALAZINE HCL 12.5 - 25 mg PO BID 11/19/20 11/19/20 History Allergies Allergy/AdvReac Type Severity Reaction Status Date / Time Beta-Blockers AdvReac Diarrhea Verified 11/19/20 15:06 (Beta-Adrenergic Bloc lisinopril AdvReac Swelling Verified 11/19/20 15:06 Physical Exam Vitals: Vital Signs Temp Pulse Pulse Resp BP BP Pulse Ox 11/20/20 11:37 98 11/20/20 11:36 111 H 164/79 11/20/20 11:28 97 11/20/20 08:00 93 19 11/20/20 07:56 96 11/20/20 07:51 97.5 F L 93 19 182/96 93 L 11/20/20 07:39 92 11/20/20 04:23 100 11/20/20 04:15 100 11/20/20 01:10 98.0 F 95 15 152/69 95 11/19/20 23:56 104 H 11/19/20 23:47 100 11/19/20 20:34 112 H 11/19/20 20:19 108 H 11/19/20 20:00 17 11/19/20 19:15 97.8 F 122 H 17 142/98 96 11/19/20 18:09 110 H 11/19/20 17:59 115 H 11/19/20 17:30 108 H 97 11/19/20 16:30 107/64 11/19/20 16:00 106 H 20 103/75 96 11/19/20 15:30 111 H 20 147/92 97 11/19/20 15:00 113 H 20 134/101 97 11/19/20 14:56 113 H 11/19/20 14:48 109 H 11/19/20 14:44 110 H 96 11/19/20 14:33 95 11/19/20 14:30 176/138 94 L 11/19/20 14:27 92 L 11/19/20 13:38 98.6 F 120 H 22 180/98 95 Intake and Output 11/19/20 11/20/20 11/20/20 22:59 06:59 14:59 Intake Total 222 Balance 222 Intake: Oral 222 Other: Weight 115.666 kg Results CBC & Chem 7: 11/20/20 06:22 11/20/20 06:22 Labs: Abnormal Lab Results - Last 24 Hours (Table) 11/19/20 11/19/20 11/19/20 Range/Units 14:27 14:27 14:27 WBC 10.8 H (3.8-10.6) k/uL Neutrophils # (1.3-7.7) k/uL Lymphocytes # (1.0-4.8) k/uL Eosinophils # 1.8 H (0-0.7) k/uL D-Dimer 0.66 H (<0.60) mg/L FEU Chloride (96-109) mmol/L Glucose 100 H (74-99) mg/dL POC Glucose (mg/dL) (75-99) mg/dL 11/20/20 11/20/20 11/20/20 Range/Units 06:22 06:22 07:04 WBC (3.8-10.6) k/uL Neutrophils # 9.6 H (1.3-7.7) k/uL Lymphocytes # 0.8 L (1.0-4.8) k/uL Eosinophils # (0-0.7) k/uL D-Dimer (<0.60) mg/L FEU Chloride 111 H (96-109) mmol/L Glucose 157 H (74-99) mg/dL POC Glucose (mg/dL) 161 H (75-99) mg/dL 11/20/20 Range/Units 11:22 WBC (3.8-10.6) k/uL Neutrophils # (1.3-7.7) k/uL Lymphocytes # (1.0-4.8) k/uL Eosinophils # (0-0.7) k/uL D-Dimer (<0.60) mg/L FEU Chloride (96-109) mmol/L Glucose (74-99) mg/dL POC Glucose (mg/dL) 146 H (75-99) mg/dL Thrombosis Risk Factor Assmnt - Choose All That Apply Each Risk Factor Represents 2 Points: Age 61-74 years Thrombosis Risk Factor Assessment Total Risk Factor Score: 2 Thrombosis Risk Factor Assessment Level: Low Risk
[2020-11-20] MEDS: ENOXAPARIN 40 MG/0.4 ML SYRINGE SQ SCH (22:15)
[2020-11-21] MEDS: IPRATROPIUM-ALBUTEROL 3 ML NEB INHALATION SCH ×4 (00:29→11:13)
[2020-11-21] MEDS: methylPREDNISolone SOD SUCCI 40 MG/ML 1 ML VIAL IV SCH ×2 (05:25→13:30)
[2020-11-21 06:59] LABS: Glucose,Whole Blood 145 mg/dL (75-99)
[2020-11-21 08:00] VITALS: RESP 16
[2020-11-21] MEDS: hydrALAZINE HCL 25 MG TAB PO SCH (11:10)
[2020-11-21] MEDS: LOSARTAN 50 MG TAB PO SCH (11:10)
[2020-11-21] MEDS: TRIAMTERENE-HCTZ 37.5-25MG 1 EACH CAP PO SCH (11:10)
[2020-11-21] MEDS: ENOXAPARIN 40 MG/0.4 ML SYRINGE SQ SCH (11:11)
[2020-11-21 11:35] LABS: Glucose,Whole Blood 165 mg/dL (75-99)
--- NOTE | 2020-11-21 13:04 | P.PN ---
Subjective Progress Note Date: 11/21/20 Principal diagnosis: Acute exacerbation of mild intermittent asthma This is a very pleasant 70-year-old gentleman who follows with Dr. Willis as his primary care provider. He has a history of hypertension, former smoker, mild intermittent chronic bronchial asthma, histoplasmosis, mediastinal lymphadenopathy with previous mediastinoscopy and negative for malignancy. He also had a history of left adrenal mass and PET scan of July 2020 revealed no suspicious hypermetabolic uptake. He follows with Dr. Grider in our office. He has been maintained on Pulmicort and albuterol. Recently he traveled to [place] to visit his daughter. He developed increasing shortness of breath and was concerned and drove himself back to [place]. He had been using his nebulizer without much improvement. He presented here to the emergency room yesterday with continued shortness of breath. No fever, chills or night sweats. No congested cough. No calf pain or swelling. Chest x-ray revealed no acute cardiopulmonary process. CT angiogram revealed no evidence of pulmonary embo lism. No evidence of acute lung disease. There is a 4.1 cm mild aneurysm of the ascending or hernia. Unchanged. Also mediastinal adenopathy unchanged. White count 10.6. Hemoglobin 15.3. Sodium 144. Potassium 4.6. Creatinine 1.1. Glucose 157. Influenza screen negative. Coronavirus screen negative. He was initiated on DuoNeb inhalations and Pulmicort. He is seen today in consultation on the regular medical floor. He is currently sitting up in a chair at the bedside. Appears somewhat anxious. He is maintaining O2 saturations in the 90s on room air. Afebrile. Hemodynamically stable. The patient is seen today 11/21/2020 in follow-up on the selective care unit. He is currently sitting up in a chair at the bedside. Awake and alert. A bit less anxious today compared to yesterday. Breathing easier. Denies any worsening shortness of breath, cough or congestion. Maintaining good O2 saturations in the 90s on room air. He's afebrile. Continues on DuoNeb inhalations, Pulmicort and Perforomist inhalations, IV Solu-Medrol, Singulair. Objective - Vital Signs Vital signs: Vital Signs Temp 98.7 F 11/21/20 07:59 Pulse 96 11/21/20 11:26 Resp 16 11/21/20 08:42 BP 180/99 11/21/20 07:59 Pulse Ox 94 L 11/21/20 07:59 Intake & Output 11/20/20 11/21/20 11/21/20 18:59 06:59 18:59 Intake Total 1080 Balance 1080 Intake: Oral 1080 Other: # Voids 3 3 - Exam GENERAL EXAM: Alert, very pleasant 70-year-old gentleman, on room air, comfortable in no apparent distress. HEAD: Normocephalic. EYES: Normal reaction of pupils, equal size. NOSE: Clear with pink turbinates. THROAT: No erythema or exudates. NECK: No masses, no JVD. CHEST: No chest wall deformity. LUNGS: Equal air entry with faint end expiratory wheeze. CVS: S1 and S2 normal with no audible murmur, regular rhythm. ABDOMEN: No hepatosplenomegaly, normal bowel sounds, no guarding or rigidity. SPINE: No scoliosis or deformity SKIN: No rashes CENTRAL NERVOUS SYSTEM: No focal deficits, tone is normal in all 4 extremities. EXTREMITIES: There is no peripheral edema. No clubbing, no cyanosis. Peripheral pulses are intact. - Labs CBC & Chem 7: 11/20/20 06:22 11/20/20 06:22 Labs: Abnormal Lab Results - Last 24 Hours (Table) 11/20/20 11/20/20 11/21/20 Range/Units 16:28 20:10 06:57 POC Glucose (mg/dL) 141 H 168 H 145 H (75-99) mg/dL 11/21/20 Range/Units 11:33 POC Glucose (mg/dL) 165 H (75-99) mg/dL Assessment and Plan Assessment: 1 Acute exacerbation of mild intermittent chronic bronchial asthma possibly triggered by altitude changes while traveling to [place] 2 Multiple environmental ALLERGIES, elevated eosinophils 3 Hypertension 4 History of 10 pack year smoking 5 History of left adrenal gland enlargement, no hypermetabolic uptake on recent PET scan in July 2020 6 History of mediastinal lymphadenopathy with previous mediastinoscopy negative for malignancy. 7 Pulmonary histoplasmosis 8 Anxiety Plan: The patient was seen and evaluated by Dr. Corrine Fernandez for discharge from the pulmonary standpoint Continue bronchodilators, Singulair Prednisone taper Follow up with Dr. Grider in our office I, the cosigning physician, performed a history & physical examination of the patient. Lungs sounds with mild end expiratory wheeze. Maintaining good O2 saturations in the 90s on room air. I discussed the assessment and plan of care with my nurse practitioner, Bridget Monaco. I attest to the above note as dictated by her.
[2020-11-21 14:51] VITALS: BP 186/72; PULSE 100; TEMP 97.7
--- NOTE | 2020-11-22 17:14 | P.DS ---
Providers Date of admission: 11/19/20 16:36 Expected date of discharge: 11/21/20 Attending physician: Cuco Casillas Consults: 11/19/20 17:12 Consult Physician Urgent Consulting Provider: Rita Grider Consult Reason/Comments: acute respiratory insuff, acute asthma exacerbation Do you want consulting provider notified?: Yes Primary care physician: Ford Willis [facility] Course: Chief Complaint: Cough History of presenting complaint: This is a pleasant 70-year-old patient of Dr. Willis. follows with Dr. Grider from pulmonary. 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 Also been diagnosed with ALLERGIC asthma. . Patient now presents with increasing bouts of coughing patient rather agitated cough. Special in speaking. Her talking. Wheezing. Short of breath. Some green sputum. No fever no chills. No edema. Appetite is okay. Admitted with acute obstructive asthma exacerbation and acute viral pharyngitis. Responded well to bronchodilators steroids and local treatment with saltwater gargles. Today-feeling much better. Care was discussed with the patient. Questions answered. Cleared by pulmonary. Consultation: Dr. Castle from pulmonary Past medical history to include: Asthma, hypertension, obstructive sleep apnea does not use CPAP left ear menieres disease Social history: Lives alone. Retired from his own building business. Smoked for 10 years stopped in 1981. Alcohol rarely. Physical examination: VITAL SIGNS: 97.7, 100, 16, 161/90 GENERAL: BMI 32.7, sitting up in a chair, comfortable EYES: Pupils equal. Conjunctiva normal. HEENT: [External appearance of nose and ears normal, oral cavity white spots in the pharynx. NECK: JVD not raised; masses not palpable. HEART: First and second heart sounds are normal; no edema. LUNGS: Respiratory rate normal, decreased breath sounds . ABDOMEN: Soft, nontender, liver spleen not palpable, no masses palpable. PSYCH: Alert and oriented x3; mood and affect normal. INVESTIGATIONS, reviewed in the clinical context: White count 10.6 hemoglobin 16 E. 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 Follow-up with cardiothoracic as outpatient. Disposition: Home Plan - Discharge Summary Discharge Rx Participant: No New Discharge Prescriptions: New predniSONE 0 mg PO DIRECTED 21 Days #33 tab Famotidine [Pepcid] 20 mg PO BID #60 tablet Montelukast [Singulair] 10 mg PO HS #30 tab Continue Losartan Potassium 100 mg PO DAILY Ipratropium Nebulized [Atrovent Nebulized 0.2 MG/ML] 0.5 mg INHALATION RT-QID PRN PRN Reason: Shortness Of Breath Albuterol Nebulized [Ventolin Nebulized] 2.5 mg INHALATION RT-QID PRN PRN Reason: Shortness Of Breath Budesonide [Pulmicort] 1 mg INHALATION RT-BID PRN PRN Reason: Shortness Of Breath cloNIDine HCL [Catapres] 0.1 mg PO DAILY PRN PRN Reason: BLOOD PRESSURE >170/100 Nystatin 100,000 Unit/ml Susp [Mycostatin Oral Susp] 5 ml PO QID PRN PRN Reason: THRUSH Discontinued Triamterene-Hctz 37.5-25Mg [Dyazide 37.5-25 Capsule] 1 cap PO DAILY Furosemide [Lasix] 20 mg PO DAILY PRN PRN Reason: Edema No Action hydrALAZINE HCL 12.5 - 25 mg PO BID Discharge Medication List Albuterol Nebulized [Ventolin Nebulized] 2.5 mg INHALATION RT-QID PRN 07/18/20 [History] Ipratropium Nebulized [Atrovent Nebulized 0.2 MG/ML] 0.5 mg INHALATION RT-QID PRN 07/18/20 [History] Losartan Potassium 100 mg PO DAILY 07/18/20 [History] Budesonide [Pulmicort] 1 mg INHALATION RT-BID PRN 11/19/20 [History] Nystatin 100,000 Unit/ml Susp [Mycostatin Oral Susp] 5 ml PO QID PRN 11/19/20 [History] cloNIDine HCL [Catapres] 0.1 mg PO DAILY PRN 11/19/20 [History] hydrALAZINE HCL 12.5 - 25 mg PO BID 11/19/20 [History] Famotidine [Pepcid] 20 mg PO BID #60 tablet 11/21/20 [Rx] Montelukast [Singulair] 10 mg PO HS #30 tab 11/21/20 [Rx] predniSONE 0 mg PO DIRECTED 21 Days #33 tab 11/21/20 [Rx] Follow up Appointment(s)/Referral(s): Ford Willis MD [Primary Care Provider] - 11/25/20 10:30 am Rita Grider MD [STAFF PHYSICIAN] - 12/12/20 2:00 pm (With Bridget) Patient Instructions/Handouts: Dyspnea (DC) Discharge Disposition: HOME SELF-CARE
== END 2020-11-21 14:42 | disposition home or self-care (01) | DRG 203 ==
LOC: EC 13:36 → 4SSUR 16:36
PROVIDERS: ADMIT Hospitalist; ATTEND Hospitalist
DX: J45.21 Mild intermittent asthma with (acute) exacerbation (principal); B39.9 Histoplasmosis, unspecified; J44.9 Chronic obstructive pulmonary disease, unspecified; E27.9 Disorder of adrenal gland, unspecified; J02.9 Acute pharyngitis, unspecified; G47.33 Obstructive sleep apnea (adult) (pediatric); Z20.822 Contact with and (suspected) exposure to COVID-19; I10 Essential (primary) hypertension; H81.02 Meniere's disease, left ear; F41.9 Anxiety disorder, unspecified; E66.9 Obesity, unspecified; Z68.32 Body mass index [BMI] 32.0-32.9, adult; Z79.51 Long term (current) use of inhaled steroids; Z79.899 Other long term (current) drug therapy; Z87.891 Personal history of nicotine dependence; Z98.890 Other specified postprocedural states; Z88.8 Allergy status to other drugs, medicaments and biological substances; Z81.8 Family history of other mental and behavioral disorders; Z82.0 Family history of epilepsy and other diseases of the nervous system
CPT/HCPCS: 36415; 71046; 71275; 80048; 80053; 83605; 83880; 84484; 85025; 85379; 85610; 85730; 87502; 87635; 93005; 94640; 94760; 96365; 96375; 99285

== ENCOUNTER → 2021-02-11 | Outpatient (CLI) | payer MEDICARE, OTHER ==
--- NOTE | 2021-02-11 14:57 | CT ---
EXAMINATION TYPE: CT abdomen pelvis wo con DATE OF EXAM: 02/11/2021 HISTORY: Left neoplasm of uncertain behavior; calculus of kidney; hematuria. CT DLP: 1155.20 mGycm. Automated Exposure Control for Dose Reduction was Utilized. TECHNIQUE: CT scan of the abdomen and pelvis is performed without oral or IV contrast. COMPARISON: Prior PET/CT August 03, 2020. Prior CTA chest November 19, 2020 FINDINGS: Within the limitations of a non-contrast study, the following observations are made. LUNG BASES: No significant abnormality is appreciated. LIVER/GB: Tiny dependent calculus in gallbladder axial image 30. PANCREAS: No significant abnormality is seen. SPLEEN: No significant abnormality is seen. ADRENALS: Stable lobulated low denser 2.3 x 1.8 cm left adrenal mass with central calcification axial image 23. KIDNEYS: Stable 10 to 11 mm posterior right renal calculus upper to midpole level axial image 33. Sta ble 5 mm calculus lower pole of the right kidney coronal image 56. BOWEL: Some diverticula in the left and sigmoid colon. No CT evidence for acute diverticulitis. No jimenez spicious small or large bowel dilatation. GENITAL ORGANS: Prostate gland measures upper limits of normal in size. Central calcifications are pr esent. Adjacent calcified left-sided pelvic phleboliths. LYMPH NODES: No greater than 1cm abdominal or pelvic lymph nodes are appreciated. OSSEOUS STRUCTURES: Mild multilevel disc space narrowing in the lumbar spine. Multilevel facet arthro see mid to lower lumbar spine. OTHER: Mild calcified plaque of the aorta extends into branch vessels. IMPRESSION: Stable partially calcified 2.3 cm left adrenal mass favored benign etiology. This is note d unchanged from chest CT March 04, 2017, oldest study available at this institution for direct compari son. Stable 2 nonobstructing right-sided renal calculi from most recent PET/CT.
== END | disposition home or self-care (01) ==
LOC: RADCTMAIN 12:51
PROVIDERS: ATTEND Urology
DX: D44.12 Neoplasm of uncertain behavior of left adrenal gland (principal); N20.0 Calculus of kidney
CPT/HCPCS: 36415; 74176; 82565; 84520

== ENCOUNTER 2021-03-15 09:05 | Observation (INO) | payer MEDICARE, OTHER ==
[2021-03-15] MEDS ORDERED: methylPREDNISolone SOD SUCCI 125 MG/2 ML VIAL IV STA (09:27)
[2021-03-15] MEDS ORDERED: IPRATROPIUM 0.5 MG/2.5 ML NEBU INHALATION STA (09:27)
[2021-03-15] MEDS ORDERED: ALBUTEROL NEBULIZED 2.5 MG/3 ML INHALATION STA (09:27)
--- NOTE | 2021-03-15 09:35 | ED ---
General Adult HPI - General Chief complaint: Shortness of Breath Stated complaint: Asthma Time Seen by Provider: 03/15/21 09:13 Source: patient Mode of arrival: ambulatory Limitations: no limitations - History of Present Illness Initial comments: 71 year-old male patient with past history significant for chronic bronchial asthma presents to the emergency department for evaluation of shortness of breath and wheezing. States that he feels like his lungs are full of phlegm that he cannot get up. States he has been doing home breathing treatments every 4 hours, as well as his budesonide treatments twice daily. Symptoms have been present for the last two weeks and feels that today he is worse. He believes it is related to pollen as this has been a trigger in the past. He denies any fever or chills. Has been coughing. Denies chest pain. Denies any nausea, vomiting, sweats, or dizziness. Patient denies any recent rash, abdominal pain, diarrhea, constipation, back pain, numbness, tingling, weakness, hematuria, dysuria, urinary urgency, urinary frequency, headache, visual changes, or any other complaints. - Related Data Home Medications Medication Instructions Recorded Confirmed Albuterol Nebulized [Ventolin 2.5 mg INHALATION RT-QID PRN 07/18/20 11/19/20 Nebulized] Ipratropium Nebulized [Atrovent 0.5 mg INHALATION RT-QID PRN 07/18/20 11/19/20 Nebulized 0.2 MG/ML] Losartan Potassium 100 mg PO DAILY 07/18/20 11/19/20 Budesonide [Pulmicort] 1 mg INHALATION RT-BID PRN 11/19/20 11/19/20 Nystatin 100,000 Unit/ml Susp 5 ml PO QID PRN 11/19/20 11/19/20 [Mycostatin Oral Susp] cloNIDine HCL [Catapres] 0.1 mg PO DAILY PRN 11/19/20 11/19/20 hydrALAZINE HCL 12.5 - 25 mg PO BID 11/19/20 11/19/20 Previous Rx's Medication Instructions Recorded Famotidine [Pepcid] 20 mg PO BID #60 tablet 11/21/20 Montelukast [Singulair] 10 mg PO HS #30 tab 11/21/20 predniSONE 0 mg PO DIRECTED 21 Days #33 tab 11/21/20 Allergies Allergy/AdvReac Type Severity Reaction Status Date / Time Beta-Blockers AdvReac Diarrhea Verified 03/15/21 09:10 (Beta-Adrenergic Bloc lisinopril AdvReac Swelling Verified 03/15/21 09:10 Review of Systems ROS Statement: Those systems with pertinent positive or pertinent negative responses have been documented in the HPI. ROS Other: All systems not noted in ROS Statement are negative. 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, bronchitis, pt states per cat scan he had a "spot" on adrenal gland and was to have MRI but d/t covid was never able to get this done, TANNER pt has Cpap but states he does not sleep well when using so uses infrequently, past lower ex tremity edema thought d/t norvasc-dc'd and went away, L ear meniere's disease, past vertigo History of Any Multi-Drug Resistant Organisms: None Reported Past Surgical History: Orthopedic Surgery Additional Past Surgical History / Comment(s): lung biopsy Past Anesthesia/Blood Transfusion Reactions: No Reported Reaction Past Psychological History: No Psychological Hx Reported Smoking Status: Former smoker Past Alcohol Use History: Rare Past Drug Use History: None Reported - Past Family History Mother Additional Family Medical History / Comment(s): Mother had a type of brain shunt d/t fluid. Father Family Medical History: Dementia General Exam Limitations: no limitations General appearance: alert, in no apparent distress, other (This is a well- developed, well-nourished adult male patient no acute distress. Vital signs upon presentation are temperature 97.3F, pulse 74, respirations 20, blood pressure 181/101, pulse ox 95% on room air.) Eye exam: Present: normal appearance, PERRL, EOMI. Absent: scleral icterus, conjunctival injection, periorbital swelling ENT exam: Present: normal exam, normal oropharynx, mucous membranes moist Respiratory exam: Present: wheezes (Extremity wheezing), decreased breath sounds (Bilateral posterior), other (Tachypnea). Absent: normal lung sounds bilaterally, respiratory distress, rales, rhonchi, stridor Cardiovascular Exam: Present: regular rate, normal rhythm, normal heart sounds. Absent: systolic murmur, diastolic murmur, rubs, gallop, clicks GI/Abdominal exam: Present: soft, normal bowel sounds. Absent: distended, tenderness, guarding, rebound, rigid Neurological exam: Present: alert, oriented X3, CN II-XII intact Psychiatric exam: Present: normal affect, normal mood Skin exam: Present: warm, dry, intact, normal color. Absent: rash Course Vital Signs 03/15/21 03/15/21 03/15/21 09:07 09:55 09:58 Temperature 97.3 F L Pulse Rate 74 79 Respiratory 20 22 Rate Blood Pressure 181/101 O2 Sat by Pulse 95 Oximetry 03/15/21 03/15/21 10:10 10:18 Temperature Pulse Rate 82 82 Respiratory 20 Rate Blood Pressure 156/94 O2 Sat by Pulse 95 Oximetry EKG Findings - EKG Comments: EKG Findings:: EKG obtained at 07 13 shows normal sinus rhythm with a ventricular rate of 84, WI interval 156, QRS duration 102, QT 388, QTC 458. No evidence of ST elevation or depression. Medical Decision Making - Medical Decision Making 71-year-old male patient presents to the emergency department today for evaluation of increased wheezing, shortness of breath, cough. Physical examin ation did reveal tight expert 3 wheezing in the posterior lung tee. Labs reviewed and are unremarkable. Chest x-ray negative. EKG unremarkable. He was given 7.5 mg albuterol with ipratropium. IV dose of Solu-Medrol. Upon reevaluation states he does feel somewhat better but still remains quite wheezy with decreased oxygen saturation. He'll be admitted to the hospital for continued breathing treatments and IV steroids. We will consult pulmonology, his physician as Dr. Grider. He verbalizes understanding and agrees with this plan. Cased discussed with my attending Dr. Muro. - Lab Data Result diagrams: 03/15/21 09:45 03/15/21 09:45 Lab Results 03/15/21 03/15/21 03/15/21 Range/Units 09:45 09:45 09:45 WBC 6.9 (3.8-10.6) k/uL RBC 4.84 (4.30-5.90) m/uL Hgb 14.3 (13.0-17.5) gm/dL Hct 43.0 (39.0-53.0) % MCV 88.8 (80.0-100.0) fL MCH 29.6 (25.0-35.0) pg MCHC 33.3 (31.0-37.0) g/dL RDW 13.4 (11.5-15.5) % Plt Count 227 (150-450) k/uL MPV 7.2 Neutrophils % 64 % Lymphocytes % 20 % Monocytes % 6 % Eosinophils % 8 % Basophils % 1 % Neutrophils # 4.4 (1.3-7.7) k/uL Lymphocytes # 1.4 (1.0-4.8) k/uL Monocytes # 0.4 (0-1.0) k/uL Eosinophils # 0.6 (0-0.7) k/uL Basophils # 0.1 (0-0.2) k/uL PT 9.9 (9.0-12.0) sec INR 0.9 (<1.2) APTT 24.6 (22.0-30.0) sec Sodium 140 (137-145) mmol/L Potassium 3.7 (3.5-5.1) mmol/L Chloride 106 (98-107) mmol/L Carbon Dioxide 28 (22-30) mmol/L Anion Gap 6 mmol/L BUN 14 (9-20) mg/dL Creatinine 0.94 (0.66-1.25) mg/dL Est GFR (CKD-EPI)AfAm >90 (>60 ml/min/1.73 sqM) Est GFR (CKD-EPI)NonAf 83 (>60 ml/min/1.73 sqM) Glucose 107 H (74-99) mg/dL Plasma Lactic Acid Johnson (0.7-2.0) mmol/L Calcium 9.1 (8.4-10.2) mg/dL Magnesium 1.9 (1.6-2.3) mg/dL Total Bilirubin 0.6 (0.2-1.3) mg/dL AST 30 (17-59) U/L ALT 24 (4-49) U/L Alkaline Phosphatase 59 (38-126) U/L Troponin I (0.000-0.034) ng/mL Total Protein 6.8 (6.3-8.2) g/dL Albumin 4.0 (3.5-5.0) g/dL Coronavirus (PCR) (Not Detectd) 03/15/21 03/15/21 03/15/21 Range/Units 09:45 09:45 09:45 WBC (3.8-10.6) k/uL RBC (4.30-5.90) m/uL Hgb (13.0-17.5) gm/dL Hct (39.0-53.0) % MCV (80.0-100.0) fL MCH (25.0-35.0) pg MCHC (31.0-37.0) g/dL RDW (11.5-15.5) % Plt Count (150-450) k/uL MPV Neutrophils % % Lymphocytes % % Monocytes % % Eosinophils % % Basophils % % Neutrophils # (1.3-7.7) k/uL Lymphocytes # (1.0-4.8) k/uL Monocytes # (0-1.0) k/uL Eosinophils # (0-0.7) k/uL Basophils # (0-0.2) k/uL PT (9.0-12.0) sec INR (<1.2) APTT (22.0-30.0) sec Sodium (137-145) mmol/L Potassium (3.5-5.1) mmol/L Chloride (98-107) mmol/L Carbon Dioxide (22-30) mmol/L Anion Gap mmol/L BUN (9-20) mg/dL Creatinine (0.66-1.25) mg/dL Est GFR (CKD-EPI)AfAm (>60 ml/min/1.73 sqM) Est GFR (CKD-EPI)NonAf (>60 ml/min/1.73 sqM) Glucose (74-99) mg/dL Plasma Lactic Acid Johnson 1.1 (0.7-2.0) mmol/L Calcium (8.4-10.2) mg/dL Magnesium (1.6-2.3) mg/dL Total Bilirubin (0.2-1.3) mg/dL AST (17-59) U/L ALT (4-49) U/L Alkaline Phosphatase (38-126) U/L Troponin I <0.012 (0.000-0.034) ng/mL Total Protein (6.3-8.2) g/dL Albumin (3.5-5.0) g/dL Coronavirus (PCR) Not Detected (Not Detectd) - Radiology Data Radiology results: report reviewed, image reviewed X-ray of the chest is obtained. Report was reviewed in its entirety. Impression by Dr. Bustamante shows no acute process. No significant change from prior. Disposition Clinical Impression: Asthma exacerbation Disposition: ADMITTED IP TO THIS [facility] Condition: Serious Referrals: Rita Grider MD [STAFF PHYSICIAN] - 1-2 days Decision to Admit Reason: Admit from EC Decision Date: 03/15/21 Decision Time: 11:02
[2021-03-15 09:56] LABS: Basophils # (A) 0.1 k/uL (0-0.2); Basophils % (A) 1 %; Eosinophils # (A) 0.6 k/uL (0-0.7); Eosinophils % (A) 8 %; HGB 14.3 gm/dL (13.0-17.5); Lymphocytes # (A) 1.4 k/uL (1.0-4.8); Lymphocytes % (A) 20 %; MCH 29.6 pg (25.0-35.0); MCHC 33.3 g/dL (31.0-37.0); MCV 88.8 fL (80.0-100.0); Mean Platelet Volume 7.2; Monocytes # (A) 0.4 k/uL (0-1.0); Monocytes % (A) 6 %; Neutrophils # (A) 4.4 k/uL (1.3-7.7); Neutrophils % (A) 64 %; Platelet Count 227 k/uL (150-450); RBC 4.84 m/uL (4.30-5.90); RDW 13.4 % (11.5-15.5); WBC 6.9 k/uL (3.8-10.6)
[2021-03-15 10:05] LABS: ALT 24 U/L (4-49); AST 30 U/L (17-59); African American GFR (CKD) >90 (>60 ml/min/1.73 sqM); Alkaline Phosphatase 59 U/L (38-126); Anion Gap 6 mmol/L; Blood Urea Nitrogen 14 mg/dL (9-20); Calcium 9.1 mg/dL (8.4-10.2); Carbon Dioxide 28 mmol/L (22-30); Chloride 106 mmol/L (98-107); Glucose 107 mg/dL (74-99); Magnesium 1.9 mg/dL (1.6-2.3); Non-African American GFR(CKD) 83 (>60 ml/min/1.73 sqM); Potassium 3.7 mmol/L (3.5-5.1); Sodium 140 mmol/L (137-145); Total Bilirubin 0.6 mg/dL (0.2-1.3); Total Protein 6.8 g/dL (6.3-8.2)
[2021-03-15 10:08] LABS: INR 0.9 (<1.2); Partial Thromboplastin Time 24.6 sec (22.0-30.0); Prothrombin Time 9.9 sec (9.0-12.0)
--- NOTE | 2021-03-15 10:49 | XR ---
EXAMINATION TYPE: XR chest 1V portable DATE OF EXAM: 03/15/2021 COMPARISON: Chest x-ray November 19, 2020. Chest CT July 18, 2020 HISTORY: History of asthma shortness of breath TECHNIQUE: Single frontal view of the chest is obtained. FINDINGS: There is mild chronic parenchymal changes without suspicious focal air space opacity, pleu ral effusion, or pneumothorax seen. The cardiac silhouette size is stable and within normal limits. The osseous structures are intact. Overlying EKG leads. IMPRESSION: No acute process. No significant change from prior
[2021-03-15] MEDS ORDERED: NALOXONE 0.4 MG/ML 1 ML VIAL IV PRN (10:57)
[2021-03-15] MEDS ORDERED: IPRATROPIUM-ALBUTEROL 3 ML NEB INHALATION PRN (10:58)
[2021-03-15] MEDS: IPRATROPIUM-ALBUTEROL 3 ML NEB INHALATION SCH ×3 (13:49→20:57)
--- NOTE | 2021-03-15 14:10 | P.HPIM ---
History of Present Illness H&P Date: 03/15/21 Chief Complaint: Short of breath History of presenting complaint: This is a pleasant 71-year-old patient of Dr. Schmid. And Dr. Grider from pulmonary. 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 Also been diagnosed with ALLERGIC asthma. . Patient presented a few days of progressive chest tightness. Congested chest. No fever no chills. Appetite is good. Unable to bring up any sputum. Wheezing shortness of breath. Therefore presented here. Review of systems: GEN.: Tired EYES: None HEENT: Stuffiness NECK: None RESPIRATORY: As above CARDIOVASCULAR: None GASTROINTESTINAL: None GENITOURINARY: None MUSCULOSKELETAL: None LYMPHATICS: None HEMATOLOGICAL: None PSYCHIATRY: None NEUROLOGICAL: None. Past medical history to include: Asthma, hypertension, obstructive sleep apnea does not use CPAP, left ear menieres disease, histoplasmosis Social history: Lives alone. Retired from his own building business. Smoked for 10 years stopped in 1981. Alcohol rarely. Physical examination: VITAL SIGNS: 97.3, 74, 20, 156.94, 93% room air GENERAL: BMI 33.4, sitting on bed, some shortness of breath EYES: Pupils equal. Conjunctiva normal. HEENT: [External appearance of nose and ears normal, oral cavity white spots in the pharynx. NECK: JVD not raised; masses not palpable. HEART: First and second heart sounds are normal; no edema. LUNGS: Respiratory rate increased, decreased breath sounds prolonged expiration , expiratory wheezing. Some expiratory crackles ABDOMEN: Soft, nontender, liver spleen not palpable, no masses palpable. PSYCH: Alert and oriented x3; mood and affect normal. NEUROLOGICAL: Cranial nerves grossly intact; no facial asymmetry, power and sensation grossly intact. LYMPHATICS: No lymph nodes palpable in the axilla and neck INVESTIGATIONS, reviewed in the clinical context: WBC 6.9 hemoglobin 14.3 potassium 3.7 creatinine 0.94 Troponin I less than 0.012 Coronavirus [PCR] not detected Assessment and plan: -Acute exacerbation of moderate persistent asthma, secondary to tracheobronchitis Nebulized bronchodilators, inhaled and IV steroids, long-acting beta agonist -Acute tracheal bronchitis -Obesity BMI 33.4 Weight loss measures and follow up with PCP -Essential hypertension, Continue losartan -Obstructive sleep apnea patient unable to use CPAP -4.1 cm ascending aorta aneurysm- Follow-up with cardiothoracic as outpatient. Bronchodilators, steroids, Mucinex. Flutter valve. Consult pulmonary. 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, bronchitis, pt states per cat scan he had a "spot" on adrenal gland and was to have MRI but d/t covid was never able to get this done, TAN[place] pt has Cpap but states he does not sleep well when using so uses infrequently, past lower extremity edema thought d/t norvasc-dc'd and went away, L ear meniere's disease, past vertigo History of Any Multi-Drug Resistant Organisms: None Reported Past Surgical History: Orthopedic Surgery Additional Past Surgical History / Comment(s): lung biopsy Past Anesthesia/Blood Transfusion Reactions: No Reported Reaction Past Psychological History: No Psychological Hx Reported Smoking Status: Former smoker Past Alcohol Use History: Rare Past Drug Use History: None Reported - Past Family History Mother Additional Family Medical History / Comment(s): Mother had a type of brain shunt d/t fluid. Father Family Medical History: Dementia Medications and Allergies Home Medications Medication Instructions Recorded Confirmed Type Albuterol Nebulized [Ventolin 2.5 mg INHALATION RT-QID PRN 07/18/20 03/15/21 History Nebulized] Ipratropium Nebulized [Atrovent 0.5 mg INHALATION RT-TID PRN 07/18/20 03/15/21 History Nebulized 0.2 MG/ML] Losartan Potassium 100 mg PO DAILY 07/18/20 03/15/21 History Budesonide [Pulmicort] 1 mg INHALATION RT-BID 11/19/20 03/15/21 History cloNIDine HCL [Catapres] 0.05 - 1 mg PO DAILY PRN 11/19/20 03/15/21 History hydrALAZINE HCL 25 mg PO BID 11/19/20 03/15/21 History Montelukast [Singulair] 10 mg PO HS #30 tab 11/21/20 03/15/21 Rx Albuterol Inhaler [Ventolin Hfa 2 puff INHALATION RT-QID PRN 03/15/21 03/15/21 History Inhaler] Budesonide/Formoterol Fumarate 2 puff INHALATION RT-BID 03/15/21 03/15/21 History [Symbicort 160-4.5 Mcg Inhaler] Cetirizine HCl [Zyrtec] 10 mg PO DAILY 03/15/21 03/15/21 History Furosemide [Lasix] 20 mg PO DAILY PRN 03/15/21 03/15/21 History Sildenafil Citrate 100 mg PO DAILY PRN 03/15/21 03/15/21 History Tamsulosin [Flomax] 0.4 mg PO HS 03/15/21 03/15/21 History Triamterene-Hctz 37.5-25Mg 1 cap PO DAILY 03/15/21 03/15/21 History [Dyazide 37.5-25 Capsule] guaiFENesin 400 mg PO TID 03/15/21 03/15/21 History Allergies Allergy/AdvReac Type Severity Reaction Status Date / Time Beta-Blockers Allergy Dyspnea Verified 03/15/21 13:52 (Beta-Adrenergic Bloc [facility] AdvReac Leg Verified 03/15/21 13:52 Swelling lisinopril AdvReac Leg Verified 03/15/21 13:52 Swelling Physical Exam Vitals: Vital Signs Temp Pulse Resp BP Pulse Ox 03/15/21 14:01 84 03/15/21 13:49 83 03/15/21 13:00 86 18 97 03/15/21 12:00 90 18 96 03/15/21 11:00 98 20 143/82 95 03/15/21 10:18 82 03/15/21 10:10 82 20 156/94 93 L 03/15/21 09:58 79 03/15/21 09:55 22 03/15/21 09:07 97.3 F L 74 20 181/101 95 Intake and Output 03/14/21 03/15/21 03/15/21 22:59 06:59 14:59 Other: Weight 117.934 kg Results CBC & Chem 7: 03/15/21 09:45 03/15/21 09:45 Labs: Abnormal Lab Results - Last 24 Hours (Table) 03/15/21 Range/Units 09:45 Glucose 107 H (74-99) mg/dL
[2021-03-15] MEDS: ENOXAPARIN 40 MG/0.4 ML SYRINGE SQ SCH (15:37)
[2021-03-15] MEDS: methylPREDNISolone SOD SUCCI 125 MG/2 ML VIAL IV SCH ×2 (15:37→19:41)
[2021-03-15] MEDS: guaiFENesin 600 MG TABLET.ER PO SCH ×3 (15:43→19:41)
[2021-03-15] MEDS: FORMOTEROL FUMARATE 20 MCG/2 ML NEBU INHALATION SCH ×2 (16:07→20:57)
[2021-03-15] MEDS: TAMSULOSIN 0.4 MG CAP.ER.24H PO SCH (19:35)
[2021-03-15] MEDS: hydrALAZINE HCL 25 MG TAB PO SCH (19:40)
[2021-03-15] MEDS: MONTELUKAST 10 MG TAB PO SCH (19:41)
[2021-03-15] MEDS: BUDESONIDE 1 MG/2 ML NEBU INHALATION SCH (20:57)
[2021-03-15] MEDS ORDERED: CALCIUM CARBONATE LIQUID 500 MG/5 ML CUP PO PRN (22:34)
[2021-03-16] MEDS: IPRATROPIUM-ALBUTEROL 3 ML NEB INHALATION SCH ×7 (01:06→23:10)
[2021-03-16] MEDS: FAMOTIDINE 20 MG TAB PO SCH ×3 (01:06→20:48)
[2021-03-16] MEDS: methylPREDNISolone SOD SUCCI 125 MG/2 ML VIAL IV SCH ×4 (04:51→20:47)
[2021-03-16] MEDS: hydrALAZINE HCL 25 MG TAB PO SCH ×2 (07:24→20:47)
[2021-03-16] MEDS: ENOXAPARIN 40 MG/0.4 ML SYRINGE SQ SCH (07:24)
[2021-03-16] MEDS: guaiFENesin 600 MG TABLET.ER PO SCH ×4 (07:24→20:48)
[2021-03-16] MEDS: LOSARTAN 50 MG TAB PO SCH (07:30)
[2021-03-16] MEDS: BUDESONIDE 1 MG/2 ML NEBU INHALATION SCH ×2 (07:46→19:17)
[2021-03-16] MEDS: FORMOTEROL FUMARATE 20 MCG/2 ML NEBU INHALATION SCH ×2 (07:46→19:17)
[2021-03-16] MEDS ORDERED: ACETAMINOPHEN TAB 325 MG TAB PO PRN (11:10)
--- NOTE | 2021-03-16 13:20 | P.CNPUL ---
History of Present Illness Consult date: 03/16/21 Requesting physician: Cuco Casillas Reason for consult: dyspnea, cough, asthma Chief complaint: Shortness of breath, chest tightness, wheezing, cough. History of present illness: Pulmonary consult dated 03/16/2021. 71-year-old male with history of chronic bronchial asthma, who presents to the emergency department, for 3 or 4 days worth of increasing shortness of breath, cough, wheezing, chest tightness. The patient was apparently here in October for the same problem saw my partner, Dr. Castle. The patient's asthma has been active for a longer period of time but over the last 3 or 4 days is got much worse. Despite the fact that he was taking all of his medications as prescribed, things were getting better so he came into the emergency room to be evaluated. His primary care physician was Dr. Willis. Unfortunately, that physician has left the area. The patient is feeling a bit better today than he did yesterday. He denies any chest pain or chest discomfort. No fever or chil ls. He denies any nausea, vomiting, diarrhea, or abdominal pain. Laboratory data is reviewed. White count, hemoglobin, hematocrit, and platelet count are all normal. PT, PTT, and INR are also normal. Sodium 140, potassium 3.7, chlorides 106, CO2 28, anion gap 6, BUN is 14, and creatinine 0.94. Chest x-ray shows nothing acute. Review of Systems REVIEW OF SYSTEMS: CONSTITUTIONAL: [Negative.] NEUROLOGIC: [ Negative.] HEENT: [ Negative.] CARDIAC: [Negative.] PULMONARY: Shortness of breath, chest tightness, cough, and wheezing. GI: [Negative.] : [Negative.] RHEUMATOLOGIC: [ Negative.] IMMUNOLOGIC: [ Negative.] ENDOCRINE: [Negative. 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, bronchitis, pt states per cat scan he had a "spot" on adrenal gland and was to have MRI but d/t covid was never able to get this done, TAN[place] pt has Cpap but states he does not sleep well when using so uses infrequently, L ear meniere's disease History of Any Multi-Drug Resistant Organisms: None Reported Past Surgical History: Adenoidectomy, Orthopedic Surgery, Tonsillectomy Additional Past Surgical History / Comment(s): lung biopsy Past Anesthesia/Blood Transfusion Reactions: No Reported Reaction Past Psychological History: No Psychological Hx Reported Additional Psychological History / Comment(s): Pt resides alone. He is independent. He has a nebulizer. Smoking Status: Former smoker Past Alcohol Use History: None Reported Additional Past Alcohol Use History / Comment(s): Pt started smoking in 1971 and quit in 1981 Past Drug Use History: None Reported - Past Family History Mother Additional Family Medical History / Comment(s): Mother had a type of brain shunt d/t fluid. Father Family Medical History: Dementia Medications and Allergies Home Medications Medication Instructions Recorded Confirmed Type Albuterol Nebulized [Ventolin 2.5 mg INHALATION RT-QID PRN 07/18/20 03/15/21 History Nebulized] Ipratropium Nebulized [Atrovent 0.5 mg INHALATION RT-TID PRN 07/18/20 03/15/21 History Nebulized 0.2 MG/ML] Losartan Potassium 100 mg PO DAILY 07/18/20 03/15/21 History Budesonide [Pulmicort] 1 mg INHALATION RT-BID 11/19/20 03/15/21 History cloNIDine HCL [Catapres] 0.05 - 1 mg PO DAILY PRN 11/19/20 03/15/21 History hydrALAZINE HCL 25 mg PO BID 11/19/20 03/15/21 History Montelukast [Singulair] 10 mg PO HS #30 tab 11/21/20 03/15/21 Rx Albuterol Inhaler [Ventolin Hfa 2 puff INHALATION RT-QID PRN 03/15/21 03/15/21 History Inhaler] Budesonide/Formoterol Fumarate 2 puff INHALATION RT-BID 03/15/21 03/15/21 History [Symbicort 160-4.5 Mcg Inhaler] Cetirizine HCl [Zyrtec] 10 mg PO DAILY 03/15/21 03/15/21 History Furosemide [Lasix] 20 mg PO DAILY PRN 03/15/21 03/15/21 History Sildenafil Citrate 100 mg PO DAILY PRN 03/15/21 03/15/21 History Tamsulosin [Flomax] 0.4 mg PO HS 03/15/21 03/15/21 History Triamterene-Hctz 37.5-25Mg 1 cap PO DAILY 03/15/21 03/15/21 History [Dyazide 37.5-25 Capsule] guaiFENesin 400 mg PO TID 03/15/21 03/15/21 History Allergies Allergy/AdvReac Type Severity Reaction Status Date / Time Beta-Blockers Allergy Dyspnea Verified 03/15/21 13:52 (Beta-Adrenergic Bloc amlodipine [From [facility]] AdvReac Leg Verified 03/15/21 13:52 Swelling lisinopril AdvReac Leg Verified 03/15/21 13:52 Swelling Physical Exam Osteopathic Statement: *. No significant issues noted on an osteopathic structural exam other than those noted in the History and Physical/Consult. Vitals: Vital Signs Temp Pulse Pulse Resp BP BP Pulse Ox 03/16/21 11:28 88 03/16/21 11:16 91 03/16/21 08:09 86 03/16/21 08:00 87 18 03/16/21 07:46 89 95 03/16/21 07:00 97.7 F 95 18 147/79 93 L 03/16/21 05:31 86 03/16/21 05:20 86 03/16/21 02:00 97.9 F 90 17 160/92 95 03/15/21 21:20 86 03/15/21 21:15 86 03/15/21 21:14 86 03/15/21 21:00 84 03/15/21 20:00 98.3 F 88 17 153/97 96 03/15/21 16:36 88 03/15/21 16:27 86 03/15/21 14:58 18 03/15/21 14:32 97.4 F L 104 H 18 153/85 96 03/15/21 14:08 97.3 F L 84 18 143/82 97 03/15/21 14:01 84 03/15/21 14:00 18 03/15/21 13:49 83 Intake and Output 03/15/21 03/16/21 03/16/21 22:59 06:59 14:59 Intake Total 236 Balance 236 Intake: Oral 236 Other: Voiding Method Toilet Toilet Toilet # Voids 2 2 No acute distress, oriented 3. No conversational dyspnea, audible wheezing, or use of accessory muscles. Room air saturation 96%. HEENT examination is grossly unremarkable. Neck supple. Full range of motion. No adenopathy thyromegaly or neck vein distention. Cardiovascular examination reveals regular rhythm rate. S1-S2 normal. No S3 or S4. No discernible murmur noted. Heart rate 88 bpm. Lungs reveal diffuse expiratory wheezes and rhonchi. Breath sounds equal. Slight prolongation on forced maneuver. No crackles appreciated. Abdomen soft bowel sounds are heard. No masses or tenderness. Extremities are intact. No cyanosis clubbing or edema. Skin is without rash or lesion. Neurologic examination is brief but nonfocal. Results - Laboratory Findings CBC and BMP: 03/15/21 09:45 03/15/21 09:45 PT/INR, D-dimer PT 9.9 sec (9.0-12.0) 03/15/21 09:45 INR 0.9 (<1.2) 03/15/21 09:45 Abnormal lab findings: Abnormal Labs 03/15/21 09:45 Glucose 107 H - Diagnostic Findings Chest x-ray: image reviewed Assessment and Plan Assessment: Acute exacerbation of chronic bronchial asthma. History of hypertension. History of sleep apnea syndrome. History of Mnire's disease. History of mediastinal adenopathy, thought to be related to a previous episode of histoplasmosis. Plan: Plan dated 03/16/2021. Currently, the patient's on appropriate medications including Pulmicort 1 mg, formoterol 20 g, and albuterol sulfate ipratropium bromide. In addition, the patient's on Solu-Medrol 60 mg every 6 hours. The patient's also receiving Singulair. In my opinion, the patient will not benefit from an antibiotic at this time. Additional recommendations and suggestions are forthcoming. Prognosis is guarded. Time with Patient: Greater than 30
[2021-03-16] MEDS: CYCLOBENZAPRINE 5 MG TAB PO PRN (17:06)
[2021-03-16] MEDS: TAMSULOSIN 0.4 MG CAP.ER.24H PO SCH (20:47)
[2021-03-16] MEDS: MONTELUKAST 10 MG TAB PO SCH (20:48)
--- NOTE | 2021-03-16 22:45 | P.PN ---
Progress Note - Text Progress Note Date: 03/16/21 Chief Complaint: Short of breath History of presenting complaint: This is a pleasant 71-year-old patient of Dr. Schmid. And Dr. Grider from pulmonary. 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 Also been diagnosed with ALLERGIC asthma. . Patient presented a few days of progressive chest tightness. Congested chest. No fever no chills. Appetite is good. Unable to bring up any sputum. Wheezing shortness of breath. Therefore presented here. admitted with acute asthma exacerbation. Started on nebulized bronchodilators, IV Solu-Medrol, long-acting beta agonist nebulizer Today: Sitting up in a chair. Breathing better. Less wheezing. Oral intake good. Patient is maintaining a chart of his peak flow which is improving. Review of systems: Was done for constitutional, cardiovascular, GI, pulmonary. relevant finding as above Active Medications Acetaminophen (Acetaminophen Tab 325 Mg Tab) 650 mg PO Q6HR PRN PRN Reason: Fever and/ or Pain Last Admin: 03/16/21 11:18 Dose: 650 mg Documented by: Albuterol/Ipratropium (Ipratropium-Albuterol 3 Ml Neb) 3 ml INHALATION RT-Q4H [facility] Last Admin: 03/16/21 19:17 Dose: 3 ml Documented by: Albuterol/Ipratropium (Ipratropium-Albuterol 3 Ml Neb) 3 ml INHALATION RT-Q2H PRN PRN Reason: Shortness Of Breath Or Wheezing Budesonide (Budesonide 1 Mg/2 Ml Nebu) 1 mg INHALATION RT-BID [facility] Last Admin: 03/16/21 19:17 Dose: 1 mg Documented by: Calcium Carbonate/Glycine (Calcium Carbonate Liquid 500 Mg/5 Ml Cup) 500 mg PO QID PRN PRN Reason: Dyspepsia Cyclobenzaprine HCl (Cyclobenzaprine 5 Mg Tab) 5 mg PO TID PRN PRN Reason: Muscle Spasm Last Admin: 03/16/21 17:06 Dose: 5 mg Documented by: Enoxaparin Sodium (Enoxaparin 40 Mg/0.4 Ml Syringe) 40 mg SQ DAILY [facility] Last Admin: 03/16/21 07:24 Dose: 40 mg Documented by: Famotidine (Famotidine 20 Mg Tab) 20 mg PO BID [facility] Last Admin: 03/16/21 20:48 Dose: 20 mg Documented by: Formoterol Fumarate (Formoterol Fumarate 20 Mcg/2 Ml Nebu) 20 mcg INHALATION RT-BID [facility] Last Admin: 03/16/21 19:17 Dose: 20 mcg Documented by: Guaifenesin (Guaifenesin 600 Mg Tablet.Er) 600 mg PO QID [facility] Last Admin: 03/16/21 20:48 Dose: 600 mg Documented by: Hydralazine HCl (Hydralazine Hcl 25 Mg Tab) 25 mg PO BID [facility] Last Admin: 03/16/21 20:47 Dose: 25 mg Documented by: Losartan Potassium (Losartan 50 Mg Tab) 100 mg PO DAILY [facility] Last Admin: 03/16/21 07:30 Dose: 100 mg Documented by: Methylprednisolone Sodium Succinate (Methylprednisolone Sod Succi 40 Mg/Ml 1 Ml Vial) 40 mg IV Q12H [facility] Montelukast Sodium (Montelukast 10 Mg Tab) 10 mg PO HS [facility] Last Admin: 03/16/21 20:48 Dose: 10 mg Documented by: Naloxone HCl (Naloxone 0.4 Mg/Ml 1 Ml Vial) 0.2 mg IV Q2M PRN PRN Reason: Opioid Reversal Tamsulosin HCl (Tamsulosin 0.4 Mg Cap.Er.24h) 0.4 mg PO [facility] Last Admin: 03/16/21 20:47 Dose: 0.4 mg Documented by: Past medical history to include: Asthma, hypertension, obstructive sleep apnea does not use CPAP, left ear menieres disease, histoplasmosis Social history: Lives alone. Retired from his own building business. Smoked for 10 years stopped in 1981. Alcohol rarely. Physical examination: VITAL SIGNS: 97.8, 90, 18, 1 5781, 94% on 2 L GENERAL:sitting up in a chair, breathing better EYES: Pupils equal. Conjunctiva normal. HEENT: [External appearance of nose and ears normal, oral cavity white spots in the pharynx. NECK: JVD not raised; masses not palpable. HEART: First and second heart sounds are normal; no edema. LUNGS: Respiratory rate increased, decreased breath sounds prolonged expiration , ABDOMEN: Soft, nontender, liver spleen not palpable, no masses palpable. PSYCH: Alert and oriented x3; mood and affect normal. INVESTIGATIONS, reviewed in the clinical context: WBC 6.9 hemoglobin 14.3 potassium 3.7 creatinine 0.94 Troponin I less than 0.012 Coronavirus [PCR] not detected Assessment and plan: -Acute exacerbation of moderate persistent asthma, secondary to tracheobronchitis-improving Nebulized bronchodilators, inhaled and IV steroids, long-acting beta agonist -Acute tracheal bronchitis -Obesity BMI 33.4 Weight loss measures and follow up with PCP -Essential hypertension, Continue losartan -Obstructive sleep apnea patient unable to use CPAP -4.1 cm ascending aorta aneurysm- Follow-up with cardiothoracic as outpatient. discussed with the patient. Cutback on IV Solu-Medrol. Hopefully home in 24 hours.
[2021-03-17] MEDS: methylPREDNISolone SOD SUCCI 40 MG/ML 1 ML VIAL IV SCH ×2 (00:53→10:20)
[2021-03-17] MEDS: IPRATROPIUM-ALBUTEROL 3 ML NEB INHALATION SCH ×3 (04:19→11:10)
[2021-03-17 07:20] VITALS: BP 153/83; RESP 20; TEMP 97.9
[2021-03-17] MEDS: ENOXAPARIN 40 MG/0.4 ML SYRINGE SQ SCH (07:23)
[2021-03-17] MEDS: LOSARTAN 50 MG TAB PO SCH (07:24)
[2021-03-17] MEDS: hydrALAZINE HCL 25 MG TAB PO SCH (07:24)
[2021-03-17] MEDS: FAMOTIDINE 20 MG TAB PO SCH (07:24)
[2021-03-17] MEDS: guaiFENesin 600 MG TABLET.ER PO SCH (07:24)
[2021-03-17] MEDS: CYCLOBENZAPRINE 5 MG TAB PO PRN (07:31)
[2021-03-17] MEDS: FORMOTEROL FUMARATE 20 MCG/2 ML NEBU INHALATION SCH (07:35)
[2021-03-17] MEDS: BUDESONIDE 1 MG/2 ML NEBU INHALATION SCH (07:35)
[2021-03-17 11:21] VITALS: PULSE 76
--- NOTE | 2021-03-17 19:58 | P.DS ---
Providers Date of admission: 03/15/21 11:18 Expected date of discharge: 03/17/21 Attending physician: Cuco Casillas Consults: 03/15/21 10:58 Consult Physician Routine Consulting Provider: Rita Grider Consult Reason/Comments: Asthma exacerbation Do you want consulting provider notified?: Yes Primary care physician: Wil Schmid [facility] Course: Chief Complaint: Short of breath History of presenting complaint: This is a pleasant 71-year-old patient of Dr. Schmid. And Dr. Grider from pulmonary. 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 Also been diagnosed with ALLERGIC asthma. . Patient presented a few days of progressive chest tightness. Congested chest. No fever no chills. Appetite is good. Unable to bring up any sputum. Wheezing shortness of breath. Therefore presented here. admitted with acute asthma exacerbation. Started on nebulized bronchodilators, IV Solu-Medrol, long-acting beta agonist nebulizer Today: Responded well. Breathing much better. Oral intake good. Questions were answered. Cleared by pulmonary. Consultation: Dr. Dumont from pulmonary Past medical history to include: Asthma, hypertension, obstructive sleep apnea does not use CPAP, left ear menieres disease, histoplasmosis Social history: Lives alone. Retired from his own building business. Smoked for 10 years stopped in 1981. Alcohol rarely. Physical examination: VITAL SIGNS: 97.9, 80, 20, 153/83, 93% GENERAL:sitting up in a chair, doing much better EYES: Pupils equal. Conjunctiva normal. HEENT: [External appearance of nose and ears normal, oral cavity white spots in the pharynx. NECK: JVD not raised; masses not palpable. HEART: First and second heart sounds are normal; no edema. LUNGS: Respiratory rate normal, improving increase ABDOMEN: Soft, nontender, liver spleen not palpable, no masses palpable. PSYCH: Alert and oriented x3; mood and affect normal. INVESTIGATIONS, reviewed in the clinical context: WBC 6.9 hemoglobin 14.3 potassium 3.7 creatinine 0.94 Troponin I less than 0.012 Coronavirus [PCR] not detected Assessment and plan: -Acute exacerbation of moderate persistent asthma, secondary to tra cheobronchitis- Nebulized bronchodilators, inhaled and IV steroids, long-acting beta agonist. He'll be discharged on tapering steroids -Acute tracheal bronchitis -Obesity BMI 33.4 Weight loss measures and follow up with PCP -Essential hypertension, Continue losartan -Obstructive sleep apnea patient unable to use CPAP -4.1 cm ascending aorta aneurysm- Follow-up with cardiothoracic as outpatient. Disposition: Home Patient Condition at Discharge: Serious Plan - Discharge Summary Discharge Rx Participant: No New Discharge Prescriptions: New Famotidine [Pepcid] 20 mg PO BID #60 tab predniSONE 10 mg PO DAILY #30 tab Lisinopril-Hctz 20-12.5 mg [Zestoretic 20-12.5] 1 tab PO HS #30 tab Continue Losartan Potassium 100 mg PO DAILY Albuterol Nebulized [Ventolin Nebulized] 2.5 mg INHALATION RT-QID PRN PRN Reason: Shortness Of Breath Budesonide [Pulmicort] 1 mg INHALATION RT-BID hydrALAZINE HCL 25 mg PO BID Montelukast [Singulair] 10 mg PO HS #30 tab Tamsulosin [Flomax] 0.4 mg PO HS Sildenafil Citrate 100 mg PO DAILY PRN PRN Reason: E.D. guaiFENesin 400 mg PO TID Budesonide/Formoterol Fumarate [Symbicort 160-4.5 Mcg Inhaler] 2 puff INHALATION RT-BID Albuterol Inhaler [Ventolin Hfa Inhaler] 2 puff INHALATION RT-QID PRN PRN Reason: Shortness Of Breath Discontinued Ipratropium Nebulized [Atrovent Nebulized 0.2 MG/ML] 0.5 mg INHALATION RT-TID PRN PRN Reason: Shortness Of Breath cloNIDine HCL [Catapres] 0.05 - 1 mg PO DAILY PRN PRN Reason: BLOOD PRESSURE >170/100 Furosemide [Lasix] 20 mg PO DAILY PRN PRN Reason: Edema Triamterene-Hctz 37.5-25Mg [Dyazide 37.5-25 Capsule] 1 cap PO DAILY No Action Cetirizine HCl [Zyrtec] 10 mg PO DAILY Discharge Medication List Albuterol Nebulized [Ventolin Nebulized] 2.5 mg INHALATION RT-QID PRN 07/18/20 [History] Losartan Potassium 100 mg PO DAILY 07/18/20 [History] Budesonide [Pulmicort] 1 mg INHALATION RT-BID 11/19/20 [History] hydrALAZINE HCL 25 mg PO BID 11/19/20 [History] Montelukast [Singulair] 10 mg PO HS #30 tab 11/21/20 [Rx] Albuterol Inhaler [Ventolin Hfa Inhaler] 2 puff INHALATION RT-QID PRN 03/15/21 [History] Budesonide/Formoterol Fumarate [Symbicort 160-4.5 Mcg Inhaler] 2 puff INHALATION RT-BID 03/15/21 [History] Cetirizine HCl [Zyrtec] 10 mg PO DAILY 03/15/21 [History] Sildenafil Citrate 100 mg PO DAILY PRN 03/15/21 [History] Tamsulosin [Flomax] 0.4 mg PO HS 03/15/21 [History] guaiFENesin 400 mg PO TID 03/15/21 [History] Famotidine [Pepcid] 20 mg PO BID #60 tab 03/17/21 [Rx] Lisinopril-Hctz 20-12.5 mg [Zestoretic 20-12.5] 1 tab PO HS #30 tab 03/17/21 [Rx] predniSONE 10 mg PO DAILY #30 tab 03/17/21 [Rx] Follow up Appointment(s)/Referral(s): Wil Schmid MD [Primary Care Provider] - 1 Week Rita Grider MD [STAFF PHYSICIAN] - 1-2 days Patient Instructions/Handouts: Asthma (DC), Allergies (GEN) Discharge Disposition: HOME SELF-CARE
== END 2021-03-17 11:28 | disposition home or self-care (01) ==
LOC: EC 09:05 → 6NMEDSUR 11:18
PROVIDERS: ADMIT Hospitalist; ATTEND Hospitalist
DX: J45.41 Moderate persistent asthma with (acute) exacerbation (principal); J20.9 Acute bronchitis, unspecified; G47.33 Obstructive sleep apnea (adult) (pediatric); I10 Essential (primary) hypertension; N42.9 Disorder of prostate, unspecified; I71.2 Thoracic aortic aneurysm, without rupture; E27.9 Disorder of adrenal gland, unspecified; B39.9 Histoplasmosis, unspecified; R59.0 Localized enlarged lymph nodes; H81.02 Meniere's disease, left ear; W61.39XA Other contact with chicken, initial encounter; E66.9 Obesity, unspecified; Z68.33 Body mass index [BMI] 33.0-33.9, adult; Z20.822 Contact with and (suspected) exposure to COVID-19; Z79.51 Long term (current) use of inhaled steroids; Z79.52 Long term (current) use of systemic steroids; Z79.899 Other long term (current) drug therapy; Z88.8 Allergy status to other drugs, medicaments and biological substances; Z87.891 Personal history of nicotine dependence; Z98.890 Other specified postprocedural states; Z82.0 Family history of epilepsy and other diseases of the nervous system
CPT/HCPCS: 96376 ×3; 96372 ×3; 96374; 99285; 36415; 94668; 94640 ×6; 94760; 94667; 93005; 80053; 83605; 83735; 84484; 85025; 85610; 85730; 87635; 71045; G0378 ×3; J2920; J2930 ×2; J1650 ×3

== ENCOUNTER → 2021-03-31 | Outpatient (CLI) | payer MEDICARE, OTHER | END | disposition home or self-care (01) | LOC: LABWHC1 09:19 | PROVIDERS: ATTEND Urology | DX: R97.20 Elevated prostate specific antigen [PSA] (principal) | CPT/HCPCS: 36415; 84153 ==